=== PATIENT | male | born 1965 | race Caucasian/White ===

== ENCOUNTER 2017-06-09 23:56 | Observation (INO) | payer OTHER, SELFPAY ==
[2017-06-09 23:56] VITALS: BP 159/98; PULSE 71; RESP 17; TEMP 36.6; O2SAT 96; BMI 28.0
--- NOTE | 2017-06-09 23:57 | NURSING ---
CALLED FOR EKG PER RN REQUEST, PULLED OLD EKG'S FOR
[2017-06-10] VITALS (17 sets, daily range): BP systolic 111–147; BP diastolic 58–92; PULSE 56–77; RESP 14–18; TEMP 36.3–37.1; O2SAT 96–98; BMI 27.5
--- NOTE | 2017-06-10 00:06 | EKG12_ITS ---
Test Reason : CP Blood Pressure : / mmHG Vent. Rate : 066 BPM Atrial Rate : 066 BPM P-R Int : 162 ms QRS Dur : 098 ms QT Int : 376 ms P-R-T Axes : 056 030 048 degrees QTc Int : 394 ms Normal sinus rhythm Normal ECG Confirmed by SHAN QUINTANILLA ([id number]), order editor SELMA HUNT ([id number]) on 06/13/2017 9:36:43 AM Referred By: Confirmed By:SHAN QUINTANILLA
--- NOTE | 2017-06-10 00:07 | EKG12_ITS ---
Test Reason : CP Blood Pressure : / mmHG Vent. Rate : 063 BPM Atrial Rate : 063 BPM P-R Int : 180 ms QRS Dur : 096 ms QT Int : 378 ms P-R-T Axes : 051 015 031 degrees QTc Int : 386 ms Normal sinus rhythm Normal ECG Confirmed by SHAN QUINTANILLA ([id number]), clinical editor SELMA HUNT ([id number]) on 06/13/2017 9:35:40 AM Referred By: ALAINA Confirmed By:SHAN QUINTANILLA
--- NOTE | 2017-06-10 00:11 | RAD_ITS ---
STUDY: X-RAY CHEST REASON FOR EXAM: Male, 51 years old. Chest pain TECHNIQUE: Single AP portable view of the chest. COMPARISON: 02/26/2014 FINDINGS: The lungs are clear and expanded. There is no demonstrated pleural abnormality. Borderline cardiomegaly. Normal mediastinum and neena. Normal visualized pulmonary arteries. Normal visualized aortic arch and descending thoracic aorta. Normal visualized thoracic spine. Anterior cervical spinal fusion and instrumentation noted. Normal visualized ribs, clavicles, and shoulders. There is no demonstrated abnormality of the visualized soft tissue structures of the upper abdomen. RAD/Chest 1 View (Portable) IMPRESSION: Borderline cardiomegaly without pulmonary edema or infiltrate. Electronically Signed: Keith Shah MD at 1:16 EST Tel , Service support ,
[2017-06-10] MEDS: Ondansetron 4 MG/2 ML Vial IV (00:15)
[2017-06-10 00:27] LABS: Absolute Lymphocyte Count 2.98 X10^3/ul (0.83-4.51); Absolute Neutrophil Count 2.8 X10^3/uL (2.0-7.7); Basophil# 0.02 X10^3/uL; Basophil% 0.3 % (0-1); Eosinophil# 0.15 X10^3/uL; Eosinophils% 2.2 % (0-5); Hematocrit 44.9 % (40-54); Hemoglobin 15.6 g/dl (13.0-16.5); Lymphocyte # 2.98 X10^3/ul (4.0); Mean Corp Hgb Conc 34.7 g/gl (32-36); Mean Corpuscular Hgb 30.4 pg (27.0-32.0); Mean Corpuscular Volume 87.5 fL (80-94); Mean Platelet Vol. 10.2 fl (6.2-12.0); Monocyte# 0.83 X10^3/uL; Monocyte% 12.3 % (0-10); Neutrophil # 2.78 X10^3/uL (2.7-7.7); Neutrophil % 41.1 % (47-70); Platelet Count 181 K/mm3 (150-450); RBC Distribution Width CV 12.9 % (11.6-14.6); RBC Distribution Width SD 40.4 fl (35.1-43.9); Red Blood Count 5.13 M/mm3 (4.6-6.2); White Blood Count 6.8 K/mm3 (4.4-11.0)
[2017-06-10 00:28] LABS: POSITIVE COUNT NO; POSITIVE DIFFERENTIAL NO; POSITIVE MORPHOLOGY NO
--- NOTE | 2017-06-10 00:32 | ED.DCSUM_ITS ---
- ER Visit Summary Date of Service: 06/10/17 Chief Complaint: Chest pain History of Present Illness: The patient is a 51 M who presents with chest pain that started last evening. Patient states he felt a pressure-like sensation in the left pectoral region. He went to bed early because of pain. He did occasionally radiate to his left jaw and down his left arm. Pain became more severe and woke him up. He did take a full dose aspirin and 3 sublingual nitro at home. He states his pain improved after the third nitro. Patient does have history of hypertension, high cholesterol, prior strokes. He is currently on aspirin and Plavix. Physical Examination: Blood pressure is 159/98, temperature 97.8, heart rate 71 , respiratory rate 17, pulse ox 96% on room air. Patient sitting upright in bed no acute distress. Head neck examination is normal. Heart is regular rate and rhythm. Lung sounds are clear with good air movement. I cannot reproduce any chest wall tenderness. Abdomen is soft nontender. Extremity examination reveals strong distal pulses throughout. Test Results: EKG is sinus at 66 with no sign of acute ischemia. Repeat EKG is unchanged. Portable chest x-ray is unremarkable per my read. CBC and chemistry studies normal. Troponin is less than 0.02. Emergency Department Course and Treatment: Patient already taken aspirin and nitro prior to arrival. He was ordered morphine and Zofran for his mild remaining pain. I did review his most recent stress test from January 2017 which was unremarkable. At this time I recommended hospitalization for cycling of cardiac enzymes and further cardiac evaluation. Treatment Plan: [] Disposition: Admit Impression: Chest pain This note was generated with [employer] dictation software. It may contain incorrect words, spelling, and punctuation that were not noted in review of the chart prior to signing ED Disposition - Plan for ED Patient: Chief Complaint: Chest Pain Referrals: Angus James MD [Primary Care Provider] -
[2017-06-10 00:34] LABS: Anion Gap 8 (5-15); BUN 17 mg/dL (7-18); Chloride 109 mmol/L (98-107); Creatinine, Serum 0.94 mg/dL (0.70-1.30); EST Glomerular Filtration Rate 89 mL/min (>60); Est Glom Filt Rate - Afr Amer 107 mL/min (>60); Estimated Creatinine Clearance 93.84 ml/min; Glucose 94 mg/dL (70-110); Sodium Level 142 mmol/L (136-145)
[2017-06-10] MEDS: 0.9% Normal Saline 1,000 ML 150 ML IV ×2 (00:47→03:00)
--- NOTE | 2017-06-10 02:54 | PCM.HP.STD ---
Problem List (1) CAD (coronary artery disease) Status: Acute (2) Chest pain Status: Acute (3) HTN (hypertension) Status: Chronic History of Present Illness Date of Admission: 06/10/17 Chief Complaint: Chest pain The patient is a 51 year old male w/ h/o HTN, CAD, and CVA admitted for chest pain. Pt had left arm pain last night around 7PM. He later developed pressure chest pain. Pain was moderate and radiated to the jaw. Nothing made it better or worse. Pain was constant. He decided to sleep it off. However, around 11PM, he woke up from the severe left sided chest pain. He took a full dose of aspirin and 3 nitro. After the third nitro, he had some relief of the pain and decided to go to the ED for further workup. Past Medical History Past Medical History (Chronic Problems): Chronic Problems HTN (hypertension) (Chronic) Allergies No Known Allergies Allergy (Verified 02/26/14 14:12) Home Medications: Ambulatory Orders Medication Instructions Recorded Aspirin [Aspirin, Baby] 81 mg PO DAILY@0800 02/26/14 Clopidogrel Bisulfate [Clopidogrel] 75 mg PO DAILY 02/26/14 Cholecalciferol (Vitamin D3) 2,000 unit PO DAILY 02/27/14 [Vitamin D] Atorvastatin Calcium [Lipitor] 10 mg PO QHS 06/10/17 Isosorbide Mononitrate [Imdur] 30 mg PO DAILY 06/10/17 Metoprolol Succinate 25 mg PO DAILY 06/10/17 Multivitamin [Multiple Vitamins] 1 each PO DAILY 06/10/17 Lives: Spouse/ Significant Other Smoking Status: Never smoker - *Family History Maternal History Items: No pertinent history Review of Systems Constitutional: Denies: Chills, Fever, Weight Change HEENT: Denies: Head Aches, Sinus Congestion, Sinus Drainage Cardiovascular: Reports: Chest Pain, Chest Pressure. Denies: Palpitations Respiratory: Denies: Cough, Shortness of breath at rest, Sputum production Gastrointestinal: Denies: Abdominal Pain, Nausea, Vomiting Genitourinary: Denies: Dysuria Musculoskeletal: Denies: Joint Pain, Joint Tenderness Skin: Denies: Rash, Wounds Neurological: Denies: Numbness, Tingling, Focal weakness Psychiatric: Denies: Anxiety, Depression, Homicidal Ideations, Suicidal Ideations Hematologic/ Lymphatic: Denies: Easy Bruising, Easy Bleeding VTE Information - Inpt Only VTE Present on Admission: No VTE Mechan Device Prophylaxis: SCD's VTE Pharm Prophylaxis ordered?: Yes Patient Problems: Active and Suspected Problems CAD (coronary artery disease) (Acute) Chest pain (Acute) - Physical Exam General: Alert, Oriented x3, Cooperative HEENT: Atraumatic, PERRLA, EOMI, Normocephalic Neck: Supple, No JVD, Negative Carotid Bruits Lungs: Clear to auscultation, Normal air movement Cardiovascular: Regular rate, No murmurs Abdomen: Bowel Sounds Present, Soft, Non Tender Extremities: No edema, Capillary Refill Less than 3 Seconds Skin: No rashes, No breakdown Musculoskeletal: No Tenderness to Palpation of Joints or Extremities Neurological: Cranial nerves II-XII grossly intact Psych/Mental Status: Normal Affect, Appropriate Vital Signs Temp Pulse Resp BP Pulse Ox 97.4 F L 58 L 16 118/76 97 06/10/17 02:02 06/10/17 02:02 06/10/17 02:02 06/10/17 02:05 06/10/17 02:02 Oxygen Flow Rate 2 Oxygen Delivery Method Nasal Cannula Weight: 87.09 kg Body Mass Index (BMI) 27.5 Laboratory Tests Past 24 Hrs 06/10/17 06/10/17 00:00 00:00 WBC 6.8 RBC 5.13 Hgb 15.6 Hct 44.9 MCV 87.5 MCH 30.4 MCHC 34.7 RDW 12.9 RDW Differential 40.4 Plt Count 181 MPV 10.2 Immature Gran % (Auto) 0.100 Neut % (Auto) 41.1 L Lymph % (Auto) 44.0 H [place] % (Auto) 12.3 H Eos % (Auto) 2.2 Baso % (Auto) 0.3 Absolute Neuts (auto) 2.8 Absolute Lymphs (auto) 2.98 Total Counted Not Reportable Sodium 142 Potassium 4.0 Chloride 109 H Carbon Dioxide 25.0 Anion Gap 8 BUN 17 Creatinine 0.94 Estim Creat Clear Calc 93.84 Est GFR (MDRD) Af Amer 107 Est GFR (MDRD) Non-Af 89 BUN/Creatinine Ratio 18.0 Glucose 94 Calcium 9.0 Troponin I < 0.02 Assessment/Plan Active and Suspected Problems CAD (coronary artery disease) (Acute) Chest pain (Acute) 51 year old male w/ h/o HTN, CAD, and CVA admitted for chest pain. 1) Chest pain: Heart score 5 Trop negative. EKG and chest xray unremarkable. Chest pain improving. Stress test in Jan 2017 negative. Will get ECHO in AM. Serial trops pending. FLP pending. Will consult cards in AM. 2) CAD: C/w meds. Monitor. 3) HTN: SBP 130s. C/w meds. Monitor. 4) Prophylaxis: Heparin
[2017-06-10 05:01] LABS: Absolute Lymphocyte Count 2.48 X10^3/ul (0.83-4.51); Absolute Neutrophil Count 1.7 X10^3/uL (2.0-7.7); Basophil# 0.02 X10^3/uL; Basophil% 0.4 % (0-1); Eosinophil# 0.14 X10^3/uL; Eosinophils% 2.9 % (0-5); Hematocrit 43.5 % (40-54); Hemoglobin 14.7 g/dl (13.0-16.5); Lymphocyte # 2.48 X10^3/ul (4.0); Lymphocyte % 50.5 % (19-41); Mean Corp Hgb Conc 33.8 g/gl (32-36); Mean Corpuscular Hgb 30.1 pg (27.0-32.0); Monocyte# 0.55 X10^3/uL; Monocyte% 11.2 % (0-10); Neutrophil # 1.72 X10^3/uL (2.7-7.7); Platelet Count 151 K/mm3 (150-450); RBC Distribution Width CV 12.7 % (11.6-14.6); Red Blood Count 4.89 M/mm3 (4.6-6.2); White Blood Count 4.9 K/mm3 (4.4-11.0)
[2017-06-10 05:16] LABS: POSITIVE COUNT NO; POSITIVE DIFFERENTIAL NO; POSITIVE MORPHOLOGY NO
[2017-06-10 05:17] LABS: ALB/GLOB Ratio 1.2 RATIO (0.9-2.4); AST(SGOT) 21 U/L (15-37); Alanine Aminotransfer ALT/SGPT 37 U/L (12-78); Albumin, Serum 3.5 g/dL (3.4-5.0); Alkaline Phosphatase 49 U/L (45-117); Anion Gap 7 (5-15); BUN 14 mg/dL (7-18); BUN/Creat Ratio 16.1 RATIO (10-20); Calcium,Total 8.4 mg/dL (8.5-10.1); Chloride 105 mmol/L (98-107); Cholesterol 127 mg/dL (200); Creatinine, Serum 0.87 mg/dL (0.70-1.30); EST Glomerular Filtration Rate 97 mL/min (>60); Est Glom Filt Rate - Afr Amer 118 mL/min (>60); Estimated Creatinine Clearance 101.39 ml/min; Globulin 2.8 g/dL (2.2-4.2); Glucose 86 mg/dL (70-110); High Density Lipoprotein 45 mg/dL; Magnesium 1.9 mg/dL (1.6-2.6); Potassium 4.1 mmol/L (3.5-5.1); Protein, Total 6.3 g/dL (6.4-8.2); Sodium Level 140 mmol/L (136-145); Thyroid Stim Hormone (TSH) 3.18 uIU/mL (0.358-3.74); Triglycerides 50 mg/dL; Very Low Density Lipoprotein 10 mg/dL (5-40)
--- NOTE | 2017-06-10 05:55 | ECHOD_ITS ---
Reason For Study: Chest Pain Procedure This was a 2D Doppler, Color Flow transthoracic echocardiogram. Exam performed portable in patient room. Left Ventricle Normal size and thickness. The estimated ejection fraction is 65 %. Normal diastology for age. No regional wall motion abnormalities noted. Right Ventricle Normal size and thickness. Normal systolic function. Atria Normal left atrium. Normal right atrium. Normal atrial septum. Mitral Valve The mitral valve is structurally normal. No prolapse or stenosis seen. Tricuspid Valve Normal tricuspid valve. Trivial tricuspid valve insufficiency. Right ventricular systolic pressure estimated to be 26 mmHg. Aortic Valve Trisinus/trileaflet aortic valve. Normal aortic valve. Pulmonic Valve Normal pulmonic valve. Great Vessels Normal aortic root. Normal arch. Normal inferior vena cava. Inferior vena cava collapse with sniff. Pericardium/Pleural No pericardial effusion. MMode/2D Measurements & Calculations LVIDd: 4.9 cm IVSd: 1.0 cm Ao root diam: 3.0 cm LVIDs: 3.1 cm LVPWd: 0.97 cm LA dimension: 3.5 cm RVDd: 3.6 cm FS: 36.1 % LAV(MOD-bp): 41.0 ml LVAd ap4: 28.6 cm2 SV(MOD-sp4): 46.7 ml LAV(MOD-bp) Indexed: 20.0 ml/m2 EDV(MOD-sp4): 88.6 ml LAV(MOD-sp2): 42.4 ml EDV(sp4-el): 93.6 ml LAV(MOD-sp4): 42.4 ml LVAs ap4: 17.4 cm2 ESV(MOD-sp4): 41.9 ml ESV(sp4-el): 44.4 ml EF(MOD-sp4): 52.7 % EF(sp4-el): 52.6 % SV(sp4-el): 49.2 ml LA A4 area: 16.5 cm2 RA A4 area: 19.0 cm2 Time Measurements MV dec time: 0.21 sec Doppler Measurements & Calculations MV E max tyler: 78.9 cm/sec Lat Peak E' Tyler: 12.7 cm/sec Med Peak E' [place]: 9.4 cm/sec MV A max tyler: 65.7 cm/sec E/E' lat: 6.2 E/E' med: 8.4 MV E/A: 1.2 MV V2 max: 88.3 cm/sec MV P1/2t max tyler: 88.3 cm/sec Ao V2 max: 128.1 cm/sec MV max P.1 mmHg MV P1/2t: 54.8 msec Ao max P.6 mmHg MV V2 mean: 48.1 cm/sec MV dec slope: 471.8 cm/sec2 Ao V2 mean: 81.6 cm/sec MV mean P.1 mmHg MVA(P1/2t): 4.0 cm2 Ao mean P.0 mmHg MV V2 VTI: 25.4 cm Ao V2 VTI: 26.6 cm LV V1 max: 117.0 cm/sec PA V2 max: 109.8 cm/sec TR max tyler: 225.9 cm/sec LV V1 max P.5 mmHg TR max P.4 mmHg LV V1 mean P.8 mmHg LV V1 mean: 78.8 cm/sec LV V1 VTI: 25.5 cm Interpretation Summary The estimated ejection fraction is 65 %. Normal diastology for age. Trivial tricuspid valve insufficiency. Right ventricular systolic pressure estimated to be 26 mmHg. Compared to echo report dated 12/11/2009, no appreciable changes noted. Ordering Physician: Hayden Buchanan Referring Physician: Angus James Performed By: Shayan Olivares RCS
--- NOTE | 2017-06-10 05:55 | EKG12_ITS ---
Test Reason : AM EKG Blood Pressure : / mmHG Vent. Rate : 060 BPM Atrial Rate : 060 BPM P-R Int : 182 ms QRS Dur : 096 ms QT Int : 398 ms P-R-T Axes : 039 029 039 degrees QTc Int : 398 ms Normal sinus rhythm Normal ECG When compared with ECG of 09-JUN-2017 23:54, MANUAL COMPARISON REQUIRED, DATA IS UNCONFIRMED Confirmed by SHAN QUINTANILLA ([id number]), video tape editor SELMA HUNT ([id number]) on 06/15/2017 11:57:42 AM Referred By: NATALIIA Confirmed By:SHAN QUINTANILLA
[2017-06-10] MEDS: Aspirin 81 MG TAB.CHEW PO (09:11)
[2017-06-10] MEDS: Isosorbide Mononitrate 30 MG Tablet PO (09:12)
[2017-06-10] MEDS: Metoprolol(XL)Succ 25 MG Tablet PO (09:12)
[2017-06-10] MEDS: Clopidogrel Bisulfate 75 MG Tablet PO (09:12)
[2017-06-10] MEDS: Multivitamins,Therapeutic Tablet 1 TABLET PO (09:12)
--- NOTE | 2017-06-10 09:57 | PCM.CONS.C ---
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 Carvalho in 2013. At that time he was found to have questionable nonobstructive coronary disease of his LAD, diagonal #2 and #3, as well as his left circumflex. Patient was transferred to [facility] on 02/28/14 underwent FFR evaluation of his left circumflex which is found to be 0.94, FFR of D2 was 0.87, and FFR of D3 was 0.87. No stenting was performed and the patient was medically managed with beta-mai and Imdur therapy. Patient returned in January 2017 with recurrent substernal chest pressure similar to his chest pain in 2013. At that time he was ruled out for myocardial infarction underwent an exercise/MPI which was negative for ischemia at an excellent workload. The patient denies any chest pain symptoms. Apparently, the patient has been cutting down on his beta-mai and cutting his Imdur in half over the last several weeks. Apparently he did not notify anyone of this, and has been exercising fairly aggressively on a elliptical market development trainer. Patient has noted that his exercise capacity and fatigue factor have increased over the last several weeks, possibly explaining why he tried to reduce his beta-mai therapy. He notes that he was no longer able to exercise in the evening due to fatigue. Last evening, at around the time he went to bed he developed severe 9 out of 10 substernal chest pressure, identical to his previous anginal symptoms noted in February 2014 as well as in March 2017. The pain radiated up into his jaw, and slightly down into his left shoulder, with associated nausea but no vomiting. Patient took 3 sublingual nitroglycerin which reduced his pain down to around a 2 out of 10. At the encouragement of his he was brought to [facility] ER where an EKG was performed which demonstrated normal sinus rhythm, no acute changes. Patient ruled out for myocardial infarction, The patient underwent an echocardiogram this morning which demonstrated normal LV size and function, EF of 65%, trivial tricuspid regurgitation, and normal RVSP. [] Past Medical History Allergies/Adverse Reactions: Allergies No Known Allergies Allergy (Verified 02/26/14 14:12) Home Medications: Ambulatory Orders Medication Instructions Recorded Aspirin [Aspirin, Baby] 81 mg PO DAILY@0800 02/26/14 Clopidogrel Bisulfate [Clopidogrel] 75 mg PO DAILY 02/26/14 Cholecalciferol (Vitamin D3) 2,000 unit PO DAILY 02/27/14 [Vitamin D] Atorvastatin Calcium [Lipitor] 10 mg PO QHS 06/10/17 Isosorbide Mononitrate [Imdur] 30 mg PO DAILY 06/10/17 Metoprolol Succinate 25 mg PO DAILY 06/10/17 Multivitamin [Multiple Vitamins] 1 each PO DAILY 06/10/17 Past Medical History (Chronic Problems): Chronic Problems HTN (hypertension) (Chronic) - *Family History Maternal History Items: No pertinent history Lives: Spouse/ Significant Other Smoking Status: Never smoker Review of Systems - Review of Systems General: Denies: Fever, Night Sweats, Fatigue Cardiovascular: Denies: Chest Discomfort, Shortness of Breath, Orthopnea, PND, Peripheral Edema, Palpitations, Lightheadedness, Dizziness, Near Syncope, Syncope Respiratory: Denies: Cough, Sputum Production, Hemoptysis Gastrointestinal: Denies: Hematemesis, Hematochezia, Melena Genitourinary: Denies: Dysuria, Hematuria Skin: Denies: Rash Subjectve: Count to distress. at the bedside. Objective: Vital Signs Temp Pulse Resp BP Pulse Ox 97.6 F L 63 18 146/83 H 98 06/10/17 08:00 06/10/17 09:12 06/10/17 08:00 06/10/17 08:00 06/10/17 08:00 Oxygen Flow Rate 2 Oxygen Delivery Method Room Air Weight: 192 lb Body Mass Index (BMI) 27.5 Intake and Output for Last 24 Hours 06/08/17 06/09/17 06/10/17 23:59 23:59 23:59 Output Total 0 / 0 Balance 0 / 0 General: Awake, Alert, Oriented x 3 HEENT: PERRL, EOMI, Sclera Non Icteric Neck: Supple, Good ROM, No Lymph Node Enlargement Lungs: Clear to auscultation Cardiovascular: Regular Rhythm, Normal S1, Normal S2, No Murmurs, No Rubs, No Gallops Vascular: No Carotid Bruits, Normal Femoral Pulses, Normal Radial Pulses, Normal Dorsalis Pedal Pulse, Normal Posterior Tibial Pulses Abdomen: Bowel Sounds Present, Soft, Non Tender, No HSM, No Organomegaly Extremities: No Cyanosis, No Clubbing, No edema Neurological: No Focal Motor or Sensory Deficit 06/10/17 04:31: WBC 4.9, RBC 4.89, Hgb 14.7, Hct 43.5, MCV 89.0, MCH 30.1, MCHC 33.8, RDW 12.7, RDW Differential 41.0, Plt Count 151, MPV 10.0, Immature Gran % (Auto) 0.000, Neut % (Auto) 35.0 L, Lymph % (Auto) 50.5 H, [place] % (Auto) 11.2 H, Eos % (Auto) 2.9, Baso % (Auto) 0.4, Absolute Neuts (auto) 1.7 L, Total Counted Not Reportable 06/10/17 04:31: Sodium 140, Potassium 4.1, Chloride 105, Carbon Dioxide 28.0, Anion Gap 7, BUN 14, Creatinine 0.87, Est GFR (MDRD) Af Amer 118, Est GFR (MDRD) Non-Af 97, BUN/Creatinine Ratio 16.1, Glucose 86, Calcium 8.4 L, Magnesium 1.9, Total Bilirubin 0.40, Triglycerides 50, Cholesterol 127, LDL Cholesterol 72, VLDL Cholesterol 10, HDL Cholesterol 45 06/10/17 04:31: Troponin I < 0.02 06/10/17 08:05: Troponin I < 0.02 Rhythm: EKG: As above ECHO: As above Stress Test: Cardiac Cath: PCI: CT Surgery: Holter monitor: EPS: PPM: CXR: Chest CT Scan: Assessment/Plan 1. Unstable angina: The patient has known coronary artery disease involving his left circumflex, LAD, diagonal #2 and diagonal #3 vessels. I reviewed his catheterization film from February 2014. Given the patient's constellation of symptoms, risk factors, several occurrences of unstable angina in the last several months, and the severity of the patient's chest pain last evening, to say nothing of the possible progression of disease since 2013, I highly recommended the patient stay in the hospital undergo a left her catheterization by either myself or Dr. Carvalho on Monday. Patient has had no further chest pain overnight, and his troponins are all negative, so therefore do not believe he requires urgent or emergent catheterization at this time. I had a long and thorough discussion with the patient and his regarding the possible reasons for his chest pain, with specific attention to the location of his most severe coronary disease of his left circumflex which may not be appreciated by surface EKG or echocardiogram, or stress testing. In addition given the patient's heavy exercise, he may have a component of ischemic preconditioning as well. I have advised him to increase his beta-mai back to his previous dosage, as well as taking his full dose Imdur 30 mg p.o. daily. Patient is already on baby aspirin and Plavix for primary prevention. I discussed the patient's condition with Dr. Freddy Carvalho his primary motor power connector, and he agrees that a catheterization should be done sooner rather than later. Patient is expressed concern about missing work, and I explained to him that we would do our best to get him back to work as soon as possible but he may have to have some time off regardless of when his catheterization takes place. I believe a reasonable compromise would be for the patient to be discharged home with a scheduled time for him to undergo diagnostic coronary angiogram either early this week or perhaps even this Monday as an outpatient, with the caveat if his symptoms return that he should return to the hospital immediately and then we will proceed with his catheterization sooner than later. 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 At this point the patient will discuss this with Dr. Carvalho, his , and make a decision regarding the timing of his catheterization going forward. 2. Hyperlipidemia: Patient's LDL is 72 and HDL is 45. Continue Lipitor therapy. 3. Thank you very much for the opportunity to put dissipate in the cardiac care of your patient. Consultation time took place between 9 AM and 10:20 AM.
--- NOTE | 2017-06-10 10:08 | CON.PCM_ITS ---
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 Carvalho in 2013. At that time he was found to have questionable nonobstructive coronary disease of his LAD, diagonal #2 and #3, as well as his left circumflex. Patient was transferred to [facility] on 02/28/14 underwent FFR evaluation of his left circumflex which is found to be 0.94, FFR of D2 was 0.87, and FFR of D3 was 0.87. No stenting was performed and the patient was medically managed with beta -mai and Imdur therapy. Patient returned in January 2017 with recurrent substernal chest pressure similar to his chest pain in 2013. At that time he was ruled out for myocardial infarction underwent an exercise/MPI which was negative for ischemia at an excellent workload. The patient denies any chest pain symptoms. Apparently, the patient has been cutting down on his beta-mai and cutting his Imdur in half over the last several weeks. Apparently he did not notify anyone of this, and has been exercising fairly aggressively on a elliptical labor trainer. Patient has noted that his exercise capacity and fatigue factor have increased over the last several weeks, possibly explaining why he tried to reduce his beta-mai therapy. He notes that he was no longer able to exercise in the evening due to fatigue. Last evening, at around the time he went to bed he developed severe 9 out of 10 substernal chest pressure, identical to his previous anginal symptoms noted in February 2014 as well as in March 2017. The pain radiated up into his jaw, and slightly down into his left shoulder, with associated nausea but no vomiting. Patient took 3 sublingual nitroglycerin which reduced his pain down to around a 2 out of 10. At the encouragement of his he was brought to [facility] ER where an EKG was performed which demonstrated normal sinus rhythm, no acute changes. Patient ruled out for myocardial infarction, The patient underwent an echocardiogram this morning which demonstrated normal LV size and function, EF of 65%, trivial tricuspid regurgitation, and normal RVSP. [] Past Medical History Allergies/Adverse Reactions: Allergies No Known Allergies Allergy (Verified 02/26/14 14:12) Home Medications: Ambulatory Orders Medication Instructions Recorded Aspirin [Aspirin, Baby] 81 mg PO DAILY@0800 02/26/14 Clopidogrel Bisulfate [Clopidogrel] 75 mg PO DAILY 02/26/14 Cholecalciferol (Vitamin D3) 2,000 unit PO DAILY 02/27/14 [Vitamin D] Atorvastatin Calcium [Lipitor] 10 mg PO QHS 06/10/17 Isosorbide Mononitrate [Imdur] 30 mg PO DAILY 06/10/17 Metoprolol Succinate 25 mg PO DAILY 06/10/17 Multivitamin [Multiple Vitamins] 1 each PO DAILY 06/10/17 Past Medical History (Chronic Problems): Chronic Problems HTN (hypertension) (Chronic) - *Family History Maternal History Items: No pertinent history Lives: Spouse/ Significant Other Smoking Status: Never smoker Review of Systems - Review of Systems General: Denies: Fever, Night Sweats, Fatigue Cardiovascular: Denies: Chest Discomfort, Shortness of Breath, Orthopnea, PND, Peripheral Edema, Palpitations, Lightheadedness, Dizziness, Near Syncope, Syncope Respiratory: Denies: Cough, Sputum Production, Hemoptysis Gastrointestinal: Denies: Hematemesis, Hematochezia, Melena Genitourinary: Denies: Dysuria, Hematuria Skin: Denies: Rash Subjectve: Count to distress. at the bedside. Objective: Vital Signs Temp Pulse Resp BP Pulse Ox 97.6 F L 63 18 146/83 H 98 06/10/17 08:00 06/10/17 09:12 06/10/17 08:00 06/10/17 08:00 06/10/17 08:00 Oxygen Flow Rate 2 Oxygen Delivery Method Room Air Weight: 192 lb Body Mass Index (BMI) 27.5 Intake and Output for Last 24 Hours 06/08/17 06/09/17 06/10/17 23:59 23:59 23:59 Output Total 0 / 0 Balance 0 / 0 General: Awake, Alert, Oriented x 3 HEENT: PERRL, EOMI, Sclera Non Icteric Neck: Supple, Good ROM, No Lymph Node Enlargement Lungs: Clear to auscultation Cardiovascular: Regular Rhythm, Normal S1, Normal S2, No Murmurs, No Rubs, No Gallops Vascular: No Carotid Bruits, Normal Femoral Pulses, Normal Radial Pulses, Normal Dorsalis Pedal Pulse, Normal Posterior Tibial Pulses Abdomen: Bowel Sounds Present, Soft, Non Tender, No HSM, No Organomegaly Extremities: No Cyanosis, No Clubbing, No edema Neurological: No Focal Motor or Sensory Deficit 06/10/17 04:31: WBC 4.9, RBC 4.89, Hgb 14.7, Hct 43.5, MCV 89.0, MCH 30.1, MCHC 33.8, RDW 12.7, RDW Differential 41.0, Plt Count 151, MPV 10.0, Immature Gran % (Auto) 0.000, Neut % (Auto) 35.0 L, Lymph % (Auto) 50.5 H, [place] % (Auto) 11.2 H , Eos % (Auto) 2.9, Baso % (Auto) 0.4, Absolute Neuts (auto) 1.7 L, Total Counted Not Reportable 06/10/17 04:31: Sodium 140, Potassium 4.1, Chloride 105, Carbon Dioxide 28.0, Anion Gap 7, BUN 14, Creatinine 0.87, Est GFR (MDRD) Af Amer 118, Est GFR (MDRD ) Non-Af 97, BUN/Creatinine Ratio 16.1, Glucose 86, Calcium 8.4 L, Magnesium 1.9 , Total Bilirubin 0.40, Triglycerides 50, Cholesterol 127, LDL Cholesterol 72, VLDL Cholesterol 10, HDL Cholesterol 45 06/10/17 04:31: Troponin I < 0.02 06/10/17 08:05: Troponin I < 0.02 Rhythm: EKG: As above ECHO: As above Stress Test: Cardiac Cath: PCI: CT Surgery: Holter monitor: EPS: PPM: CXR: Chest CT Scan: Assessment/Plan 1. Unstable angina: The patient has known coronary artery disease involving his left circumflex, LAD, diagonal #2 and diagonal #3 vessels. I reviewed his catheterization film from February 2014. Given the patient's constellation of symptoms, risk factors, several occurrences of unstable angina in the last several months, and the severity of the patient's chest pain last evening, to say nothing of the possible progression of disease since 2013, I highly recommended the patient stay in the hospital undergo a left her catheterization by either myself or Dr. Carvalho on Monday. Patient has had no further chest pain overnight, and his troponins are all negative, so therefore do not believe he requires urgent or emergent catheterization at this time. I had a long and thorough discussion with the patient and his regarding the possible reasons for his chest pain, with specific attention to the location of his most severe coronary disease of his left circumflex which may not be appreciated by surface EKG or echocardiogram, or stress testing. In addition given the patient's heavy exercise, he may have a component of ischemic preconditioning as well. I have advised him to increase his beta-mai back to his previous dosage, as well as taking his full dose Imdur 30 mg p.o. daily. Patient is already on baby aspirin and Plavix for primary prevention. I discussed the patient's condition with Dr. Freddy Carvalho his primary steam setter, and he agrees that a catheterization should be done sooner rather than later. Patient is expressed concern about missing work, and I explained to him that we would do our best to get him back to work as soon as possible but he may have to have some time off regardless of when his catheterization takes place. I believe a reasonable compromise would be for the patient to be discharged home with a scheduled time for him to undergo diagnostic coronary angiogram either early this week or perhaps even this Monday as an outpatient, with the caveat if his symptoms return that he should return to the hospital immediately and then we will proceed with his catheterization sooner than later. 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 At this point the patient will discuss this with Dr. Carvalho, his , and make a decision regarding the timing of his catheterization going forward. 2. Hyperlipidemia: Patient's LDL is 72 and HDL is 45. Continue Lipitor therapy. 3. Thank you very much for the opportunity to put dissipate in the cardiac care of your patient. Consultation time took place between 9 AM and 10:20 AM.
--- NOTE | 2017-06-10 15:33 | CASEMGMT ---
According to [facility] website, the following are in-network tertiary facilities: [facility], [place], [facility], [facility], [place], [facility], [facility], and . Elida PARR CM
[2017-06-10] MEDS: 0.9% NaCl Peripheral Flush Adult/Peds IV (20:49)
[2017-06-10] MEDS: Atorvastatin Calcium 10 MG Tablet PO (22:28)
[2017-06-11] VITALS (13 sets, daily range): BP systolic 109–146; BP diastolic 69–76; PULSE 50–90; RESP 16; TEMP 36.7–37.2; O2SAT 95–97
[2017-06-11] MEDS: Multivitamins,Therapeutic Tablet 1 TABLET PO (09:36)
[2017-06-11] MEDS: Metoprolol(XL)Succ 25 MG Tablet PO (09:36)
[2017-06-11] MEDS: Isosorbide Mononitrate 30 MG Tablet PO (09:36)
[2017-06-11] MEDS: Aspirin 81 MG TAB.CHEW PO (09:36)
[2017-06-11] MEDS: Clopidogrel Bisulfate 75 MG Tablet PO (09:36)
--- NOTE | 2017-06-11 10:14 | PCM.PN.CARD ---
Subjectve: Patient doing very well, no 24 hour events. Telemetry showed normal sinus rhythm. No further chest pain with increased dose of beta-mai and Imdur. Objective: Vital Signs Temp Pulse Resp BP Pulse Ox 98.6 F 60 16 130/69 H 97 06/11/17 09:31 06/11/17 09:36 06/11/17 09:31 06/11/17 09:36 06/11/17 09:31 Oxygen Flow Rate 2 Oxygen Delivery Method Room Air Weight: 192 lb Body Mass Index (BMI) 27.5 Intake and Output for Last 24 Hours 06/09/17 06/10/17 06/11/17 23:59 23:59 23:59 Intake Total 840 / 840 Output Total 0 / 0 Balance 840 / 840 General: Awake, Alert, Oriented x 3 HEENT: PERRL, EOMI, Sclera Non Icteric Neck: Supple, Good ROM, No Lymph Node Enlargement Lungs: Clear to auscultation Cardiovascular: Regular Rhythm, Normal S1, Normal S2, No Murmurs, No Rubs, No Gallops Vascular: No Carotid Bruits, Normal Femoral Pulses, Normal Radial Pulses, Normal Dorsalis Pedal Pulse, Normal Posterior Tibial Pulses Abdomen: Bowel Sounds Present, Soft, Non Tender, No HSM, No Organomegaly Extremities: No Cyanosis, No Clubbing, No edema Neurological: No Focal Motor or Sensory Deficit 06/10/17 13:55: Troponin I < 0.02 Rhythm: EKG: ECHO: Stress Test: Cardiac Cath: PCI: CT Surgery: Holter monitor: EPS: PPM: CXR: Chest CT Scan: Assessment/Plan 1. Unstable angina: The patient has known coronary artery disease involving his left circumflex, LAD, diagonal #2 and diagonal #3 vessels. I reviewed his catheterization film from February 2014. Given the patient's constellation of symptoms, risk factors, several occurrences of unstable angina in the last several months, and the severity of the patient's chest pain last evening, to say nothing of the possible progression of disease since 2013, I highly recommended the patient stay in the hospital undergo a left her catheterization by either myself or Dr. Carvalho on Monday. Patient has had no further chest pain overnight, and his troponins are all negative, so therefore do not believe he requires urgent or emergent catheterization at this time. I had a long and thorough discussion with the patient and his regarding the possible reasons for his chest pain, with specific attention to the location of his most severe coronary disease of his left circumflex which may not be appreciated by surface EKG or echocardiogram, or stress testing. In addition given the patient's heavy exercise, he may have a component of ischemic preconditioning as well. I have advised him to increase his beta-mai back to his previous dosage, as well as taking his full dose Imdur 30 mg p.o. daily. Patient is already on baby aspirin and Plavix for primary prevention. I discussed the patient's condition with Dr. Freddy Carvalho his primary skin washer, and he agrees that a catheterization should be done sooner rather than later. Patient is expressed concern about missing work, and I explained to him that we would do our best to get him back to work as soon as possible but he may have to have some time off regardless of when his catheterization takes place. 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 After much discussion yesterday with the patient, his , he will continue baby aspirin,The patient is agreed to proceed with left heart catheterization tomorrow morning, 06/12/16. He will continue baby aspirin, Plavix, beta-mai, Imdur. 2. Hyperlipidemia: Patient's LDL is 72 and HDL is 45. Continue Lipitor therapy. 3. Thank you very much for the opportunity to put dissipate in the cardiac care of your patient. Catheterization to follow with Dr. Carvalho tomorrow morning. Code Visit Inpatient E&M: 34977 Subs Hosp L2
--- NOTE | 2017-06-11 10:17 | PN.CARD_ITS ---
Subjectve: Patient doing very well, no 24 hour events. Telemetry showed normal sinus rhythm. No further chest pain with increased dose of beta-mai and Imdur. Objective: Vital Signs Temp Pulse Resp BP Pulse Ox 98.6 F 60 16 130/69 H 97 06/11/17 09:31 06/11/17 09:36 06/11/17 09:31 06/11/17 09:36 06/11/17 09:31 Oxygen Flow Rate 2 Oxygen Delivery Method Room Air Weight: 192 lb Body Mass Index (BMI) 27.5 Intake and Output for Last 24 Hours 06/09/17 06/10/17 06/11/17 23:59 23:59 23:59 Intake Total 840 / 840 Output Total 0 / 0 Balance 840 / 840 General: Awake, Alert, Oriented x 3 HEENT: PERRL, EOMI, Sclera Non Icteric Neck: Supple, Good ROM, No Lymph Node Enlargement Lungs: Clear to auscultation Cardiovascular: Regular Rhythm, Normal S1, Normal S2, No Murmurs, No Rubs, No Gallops Vascular: No Carotid Bruits, Normal Femoral Pulses, Normal Radial Pulses, Normal Dorsalis Pedal Pulse, Normal Posterior Tibial Pulses Abdomen: Bowel Sounds Present, Soft, Non Tender, No HSM, No Organomegaly Extremities: No Cyanosis, No Clubbing, No edema Neurological: No Focal Motor or Sensory Deficit 06/10/17 13:55: Troponin I < 0.02 Rhythm: EKG: ECHO: Stress Test: Cardiac Cath: PCI: CT Surgery: Holter monitor: EPS: PPM: CXR: Chest CT Scan: Assessment/Plan 1. Unstable angina: The patient has known coronary artery disease involving his left circumflex, LAD, diagonal #2 and diagonal #3 vessels. I reviewed his catheterization film from February 2014. Given the patient's constellation of symptoms, risk factors, several occurrences of unstable angina in the last several months, and the severity of the patient's chest pain last evening, to say nothing of the possible progression of disease since 2013, I highly recommended the patient stay in the hospital undergo a left her catheterization by either myself or Dr. Carvalho on Monday. Patient has had no further chest pain overnight, and his troponins are all negative, so therefore do not believe he requires urgent or emergent catheterization at this time. I had a long and thorough discussion with the patient and his regarding the possible reasons for his chest pain, with specific attention to the location of his most severe coronary disease of his left circumflex which may not be appreciated by surface EKG or echocardiogram, or stress testing. In addition given the patient's heavy exercise, he may have a component of ischemic preconditioning as well. I have advised him to increase his beta-mai back to his previous dosage, as well as taking his full dose Imdur 30 mg p.o. daily. Patient is already on baby aspirin and Plavix for primary prevention. I discussed the patient's condition with Dr. Freddy Carvalho his primary cna hha, and he agrees that a catheterization should be done sooner rather than later. Patient is expressed concern about missing work, and I explained to him that we would do our best to get him back to work as soon as possible but he may have to have some time off regardless of when his catheterization takes place. 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 After much discussion yesterday with the patient, his , he will continue baby aspirin,The patient is agreed to proceed with left heart catheterization tomorrow morning, 06/12/16. He will continue baby aspirin, Plavix, beta-mai , Imdur. 2. Hyperlipidemia: Patient's LDL is 72 and HDL is 45. Continue Lipitor therapy. 3. Thank you very much for the opportunity to put dissipate in the cardiac care of your patient. Catheterization to follow with Dr. Carvalho tomorrow morning. Code Visit Inpatient E&M: 98338 Subs Hosp L2
--- NOTE | 2017-06-11 18:28 | PCM.PROGNOTE ---
Patient Problems: Active and Suspected Problems CAD (coronary artery disease) (Acute) Chest pain (Acute) Subjective: Patient was seen and examined today, he has no complaints of any shortness of breath or chest pain. Patient will undergo a cardiac catheterization tomorrow. - Physical Exam General: Alert, Oriented x3, Cooperative, No apparent distress, Well developed, Well nourished HEENT: Atraumatic, PERRLA, EOMI, Normocephalic Oral: Moist Mucosa Neck: Supple, No JVD, No Nuchal Rigidity, Trachea Midline, Thyroid Normal Size and Texture Lungs: Clear to auscultation, Normal air movement, No rhonchi, No wheeze, No rales Cardiovascular: Regular rate, Regular Rhythm, Normal S1, Normal S2, No murmurs, No Ectopic Activity, PMI Normal, No rub noted, No Gallop Abdomen: Bowel Sounds Present, Soft, Non Tender, Non-Distended, No hernias noted Extremities: No clubbing, No cyanosis, No edema, Capillary Refill Less than 3 Seconds Skin: No rashes, No breakdown Neurological: Cranial nerves II-XII grossly intact, Neuro grossly intact, Muscle tone normal, Sensory exam intact to light touch and pain, Coordination normal Psych/Mental Status: Normal Affect, Appropriate, Alert and oriented to time, place, person, mood and affect Vital Signs Temp Pulse Resp BP Pulse Ox 98.0 F 57 L 16 120/76 95 06/11/17 15:30 06/11/17 15:30 06/11/17 15:30 06/11/17 15:30 06/11/17 15:30 Oxygen Flow Rate 2 Oxygen Delivery Method Room Air Weight: 87.09 kg Body Mass Index (BMI) 27.5 Intake and Output for Last 24 Hours 06/09/17 06/10/17 06/11/17 23:59 23:59 23:59 Intake Total 840 / 840 1710 / 1710 Output Total 0 / 0 Balance 840 / 840 1710 / 1710 Assessment/Plan Active and Suspected Problems CAD (coronary artery disease) (Acute) Chest pain (Acute) #1 precordial chest pain-suspicious for angina, patient will undergo a cardiac catheterization tomorrow #2 coronary artery disease by history #3 hyperlipidemia #4 hypertension Code Visit OBSV E&M: 52110 Subsequent observation care L2
[2017-06-11] MEDS: Atorvastatin Calcium 10 MG Tablet PO (21:07)
[2017-06-11] MEDS: 0.9% NaCl Peripheral Flush Adult/Peds IV (21:08)
[2017-06-11] MEDS: 0.9% Normal Saline 1,000 ML 15 ML IV (23:45)
--- NOTE | 2017-06-11 23:48 | NURSING ---
This RN checked heart cath prep site since done independently by patient.
[2017-06-12] VITALS (16 sets, daily range): BP systolic 96–142; BP diastolic 43–71; PULSE 52–73; RESP 16; TEMP 36.4–37.1; O2SAT 94–100
[2017-06-12 04:30] LABS: Color, Urine Yellow (Yellow); Glucose, Dipstick Normal (Normal); Ketone-Dipstick Negative (Negative); Leukocyte Esterase-Dipstick Negative /ul (Negative); Nitrite-Dipstick Negative (Negative); Occult Blood-Urine Negative /ul (Negative); Protein-Dipstick Negative (Negative); Urine Bilirubin Dipstick Negative (Negative); Urine Clarity Clear (Clear); Urine Urobilinogen Normal (Normal)
--- NOTE | 2017-06-12 05:55 | EKG12_ITS ---
Test Reason : MORNING EKG Blood Pressure : / mmHG Vent. Rate : 055 BPM Atrial Rate : 055 BPM P-R Int : 166 ms QRS Dur : 100 ms QT Int : 406 ms P-R-T Axes : 042 022 025 degrees QTc Int : 388 ms Sinus bradycardia Otherwise normal ECG When compared with ECG of 10-JUN-2017 05:31, MANUAL COMPARISON REQUIRED, DATA IS UNCONFIRMED Confirmed by SHAN QUINTANILLA ([id number]), newspaper editor SELMA HUNT ([id number]) on 06/15/2017 12:01:02 PM Referred By: Confirmed By:SHAN QUINTANILLA
[2017-06-12] MEDS: Aspirin 81 MG TAB.CHEW PO (05:59)
[2017-06-12] MEDS: Clopidogrel Bisulfate 75 MG Tablet PO (05:59)
[2017-06-12 06:12] LABS: International Normalized Ratio 1.1; Partial Thromboplast Time 26.1 Seconds (24.1-36.2); Prothrombin Time (Protime)PT. 13.7 SECONDS (11.7-14.9)
[2017-06-12 06:22] LABS: Absolute Lymphocyte Count 2.02 X10^3/ul (0.83-4.51); Absolute Neutrophil Count 2.3 X10^3/uL (2.0-7.7); Basophil# 0.01 X10^3/uL; Basophil% 0.2 % (0-1); Eosinophil# 0.08 X10^3/uL; Eosinophils% 1.6 % (0-5); Hematocrit 43.2 % (40-54); Hemoglobin 15.1 g/dl (13.0-16.5); Lymphocyte # 2.02 X10^3/ul (4.0); Lymphocyte % 39.5 % (19-41); Mean Corpuscular Hgb 30.6 pg (27.0-32.0); Mean Corpuscular Volume 87.6 fL (80-94); Mean Platelet Vol. 10.2 fl (6.2-12.0); Monocyte# 0.66 X10^3/uL; Monocyte% 12.9 % (0-10); Neutrophil # 2.33 X10^3/uL (2.7-7.7); Neutrophil % 45.6 % (47-70); Platelet Count 157 K/mm3 (150-450); RBC Distribution Width CV 12.4 % (11.6-14.6); Red Blood Count 4.93 M/mm3 (4.6-6.2); White Blood Count 5.1 K/mm3 (4.4-11.0)
[2017-06-12 06:29] LABS: POSITIVE COUNT NO; POSITIVE DIFFERENTIAL NO; POSITIVE MORPHOLOGY NO
[2017-06-12 06:41] LABS: Anion Gap 7 (5-15); BUN 17 mg/dL (7-18); BUN/Creat Ratio 19.7 RATIO (10-20); Calcium,Total 8.5 mg/dL (8.5-10.1); Chloride 106 mmol/L (98-107); Creatinine, Serum 0.86 mg/dL (0.70-1.30); EST Glomerular Filtration Rate 99 mL/min (>60); Est Glom Filt Rate - Afr Amer 119 mL/min (>60); Estimated Creatinine Clearance 102.57 ml/min; Glucose 88 mg/dL (70-110); Potassium 3.9 mmol/L (3.5-5.1); Sodium Level 140 mmol/L (136-145)
[2017-06-12] MEDS: Metoprolol(XL)Succ 25 MG Tablet PO (06:43)
[2017-06-12] MEDS: Isosorbide Mononitrate 30 MG Tablet PO (06:45)
[2017-06-12] MEDS: DiphenhydrAMINE 25 MG Capsule 50 MG PO (06:45)
--- NOTE | 2017-06-12 08:06 | PN.CARD_ITS ---
Subjectve: The patient seen and evaluated and underwent cardiac catheterization today Objective: Vital Signs Temp Pulse Resp BP Pulse Ox 98.7 F 59 L 16 127/71 H 100 06/12/17 03:05 06/12/17 06:43 06/12/17 03:05 06/12/17 06:43 06/12/17 03:05 Oxygen Flow Rate 2 Oxygen Delivery Method Room Air Weight: 192 lb Body Mass Index (BMI) 27.5 Intake and Output for Last 24 Hours 06/10/17 06/11/17 06/12/17 23:59 23:59 23:59 Intake Total 840 / 840 1845 / 1845 Output Total 0 / 0 Balance 840 / 840 1845 / 1845 General: Awake, Alert, Oriented x 3 HEENT: PERRL, EOMI, Sclera Non Icteric Neck: Supple, Good ROM, No Lymph Node Enlargement Lungs: Clear to auscultation Cardiovascular: Regular Rhythm, Normal S1, Normal S2, No Murmurs, No Rubs, No Gallops Vascular: No Carotid Bruits, Normal Femoral Pulses, Normal Radial Pulses, Normal Dorsalis Pedal Pulse, Normal Posterior Tibial Pulses Abdomen: Bowel Sounds Present, Soft, Non Tender, No HSM, No Organomegaly Extremities: No Cyanosis, No Clubbing, No edema Neurological: No Focal Motor or Sensory Deficit 06/12/17 03:50: Urine Color Yellow, Urine Clarity Clear, Urine pH 6.0, Ur Specific [place] 1.020, Urine Protein Negative, Urine Glucose (UA) Normal, Urine Ketones Negative, Urine Occult Blood Negative, Urine Nitrite Negative, Urine Bilirubin Negative, Urine Urobilinogen Normal, Ur Leukocyte Esterase Negative 06/12/17 05:45: WBC 5.1, RBC 4.93, Hgb 15.1, Hct 43.2, MCV 87.6, MCH 30.6, MCHC 35.0, RDW 12.4, RDW Differential 39.0, Plt Count 157, MPV 10.2, Immature Gran % (Auto) 0.200, Neut % (Auto) 45.6 L, Lymph % (Auto) 39.5, [place] % (Auto) 12.9 H, Eos % (Auto) 1.6, Baso % (Auto) 0.2, Absolute Neuts (auto) 2.3, Total Counted Not Reportable 06/12/17 05:45: PT 13.7, INR 1.1, APTT 26.1 06/12/17 05:45: Sodium 140, Potassium 3.9, Chloride 106, Carbon Dioxide 27.0, Anion Gap 7, BUN 17, Creatinine 0.86, Est GFR (MDRD) Af Amer 119, Est GFR (MDRD ) Non-Af 99, BUN/Creatinine Ratio 19.7, Glucose 88, Calcium 8.5 Rhythm: EKG: ECHO: Normal ejection fraction 65% Assessment/Plan 1. Chest pain. He underwent cardiac catheterization today which demonstrated the following: Left main coronary artery which is normal Left anterior descending artery with mild calcification and mild disease noted in the midsegment. third diagonal vessel with ostial 50-60% Circumflex artery with mid 40-50% Right coronary artery with mid 10-20% In comparison to the previous films from 2013 the above changes appear to be slightly better. He had undergone flow wire evaluation of the circumflex artery and the LAD which were noted to be not significant. In addition he has undergone within the last 4 months and exercise stress test at a high level of exercise without any angina. My recommendation would be to continue his current medical therapy and increase his isosorbide to 60 mg a day. Can be discharged later today
[2017-06-12] MEDS: 0.9% Normal Saline 1,000 ML 75 ML IV (08:15)
--- NOTE | 2017-06-12 08:16 | CL.D_ITS ---
Patient Name: KYREE THORNTON Study Date: 06/12/2017 Performing: Freddy Carvalho MD Ht: 70 inches 178 cm : 1965 Wt: 192.1 lbs 87 kg Age: 51 Gender: male BSA: 2.05 PROCEDURE(S) PERFORMED DI25-ZIN/COR/LV CLINICAL PROFILE AND INDICATIONS INDICATIONS: 51-year-old man with a history of chest pain Stress/Imaging Stress/Image Study Performed: No CAD Presentations: Symptom unlikely to be ischemic. CONCLUSIONS Mild to moderate coronary artery disease involving the mid left circumflex artery as well as the thir d diagonal vessel with mid LAD mild calcification. The above in comparison to the previous films fro m 4 years ago appeared to be no significantly different. RECOMMENDATIONS Risk factor modification ASA Indefinitely Medical therapy DESCRIPTION OF PROCEDURE The patient arrived to the procedure lab. The risks and benefits of the procedure as well as a full d escription of our services here and current unavailability of surgical backup were fully explained to the patient and/or their significant other prior to the catheterization. The Timeout was completed, verifying the correct patient and procedure. The patient's procedural site was prepped and draped in the usual fashion. Local anesthetic was given subcutaneously to right groin region with Lidocaine 2%. Using a modified Seldinger technique, arterial access was obtained via the right femoral artery, a 5 Fr sheath was inserted. Left Coronary Artery selective angiography was performed in multiple views u sing a 5 Fr. JL4 catheter. Right Coronary Artery selective angiography was then performed in multiple views using a 5 Fr. 3DRC (Yoel) catheter. Left Ventriculography was performed in LAMB projection using a 5 Fr. Pigtail catheter. LV to AO pullback pressures were then recorded.The arterial sheath wa s pulled and manual compression applied until hemostasis is achieved. CORONARY ANGIOGRAPHY DOMINANCE: Right Dominant LEFT HEART ASSESSMENT Left Ventricular Ejection Fraction: by LV Gram 65 % Normal Left Ventricular systolic function LEFT MAIN: Angiographically normal LEFT ANTERIOR DECENDING ARTERY: PROX LAD: No significant disease noted MID LAD: Mild calcification, Mild luminal irregularities less than 30% DIAGONAL 3: Ostial - 50 % Stenosis CIRCUMFLEX ARTERY: MID CIRC: 50 with mild distal dilatation % Stenosis RIGHT CORONARY ARTERY: MID RCA: Mild luminal irregularities less than 30% COMPLICATIONS No Complications PROCEDURE MEDICATIONS Fentanyl 50 mcg IV Versed 1 mg IV Oxygen: 2 L/min via nasal cannula SUMMARY OF HEMODYNAMIC DATA Time AIR REST ECG 07:20:48 AO 113/65 (84) SA 07:36:53 LV 112/1, 8 07:47:31 LV 130/4, 14 07:47:38 LV 132/-3, 23 07:48:27 LVp 124/-4, 22 07:48:32 AOp 126/69 (95) 07:48:37 Signed By Freddy Carvalho MD On 06/12/2017 08:15:41 Freddy Carvalho MD
[2017-06-12] MEDS: Multivitamins,Therapeutic Tablet 1 TABLET PO (09:59)
--- NOTE | 2017-06-12 11:01 | PCM.DC ---
- Discharge Diagnoses Current Active Problems: Current Active and Chronic Problems CAD (coronary artery disease) (Acute) Chest pain (Acute) HTN (hypertension) (Chronic) You will use the following diet at home:: Cardiac Your food should be the consistency of: Regular Your liquids should be the consistency of: Regular/Thin Discharge Activity: - - Continue activity per Cardiology recommendations. May resume sexual activity in: 10-14 days Weight Bearing Status: Weight bearing as tolerated Call your doctor if your incision/area has: Continuous Slow Oozing, Sudden Increased Bleeding, Increased Pain/ Swelling, Increased Redness, Foul Smelling Discharge, Swelling at the incision site Call your doctor if you observe: Fever of 101 or Higher, Inability to urinate, Inability to have a bowel movement, Shortness of breath, Dizziness, Fainting spells, Chest pain, Uncontrolled pain Instructions: What Is Angina?, Discharge Instructions for Angina, Discharge Instructions: Taking Nitrates, ED Chest Pain Angina Stable Allergies/Adverse Reactions: Allergies No Known Allergies Allergy (Verified 02/26/14 14:12) Medications to take at Discharge Aspirin [Aspirin, Baby] 81 mg PO DAILY@0800 02/26/14 Clopidogrel Bisulfate [Clopidogrel] 75 mg PO DAILY 02/26/14 Cholecalciferol (Vitamin D3) [Vitamin D] 2,000 unit PO DAILY 02/27/14 Atorvastatin Calcium [Lipitor] 10 mg PO QHS 06/10/17 Metoprolol Succinate 25 mg PO DAILY 06/10/17 Multivitamin [Multiple Vitamins] 1 each PO DAILY 06/10/17 Isosorbide Mononitrate [Imdur] 60 mg PO DAILY #30 tab 06/12/17 The following prescriptions were given: Isosorbide Mononitrate [Imdur] 60 mg PO DAILY #30 tab Primary Care Physician: Angus James MD [Primary Care Provider] - Please follow up with your Primary Care Physician in: Follow-up within 3-5 days to review admission. Please Follow Up With: Freddy Carvalho MD When: Please follow-up per Cardiology timeline recommendations. Proposed Discharge Date: 06/12/17
--- NOTE | 2017-06-12 11:04 | DS.PCM_ITS ---
Discharge Date and Diagnosis Date of Admission: 06/10/17 Date of Discharge: 06/12/17 - Primary Discharge Diagnosis Active and Suspected Problems CAD (coronary artery disease) (Acute) with no PCI needs Chest pain (Acute) secondary to stable angina HTN HLD - Secondary Discharge Diagnosis Chronic Problems HTN (hypertension) (Chronic) Hospital Course and Treatment Dr. Carvalho Cardiology Operations: None Procedures: Cardiac catheterization, EKG, Stress test Summary of Care Provided: The patient is a 51 y/o M w/ PMHx: CAD, HTN, HLD, History of CVA prior who presented to the [facility] ED on 06/10/17 w/ history of onset chest pain with radiation to the LUE and L jaw, described as chest pressure with some relief with NG upon ED presentation. In the ED work-up included EKG sinus rhythm without evidence of acute ischemia, CXR without acute process, unremarkable CBC and chemistry, cardiac enzyme set x 1 normal. The patient was admitted to PCU, maintained on cardiac telemetry, serial cardiac enzymes were obtained as well as serial EKGs which remained unremarkable. FLP was obtained during admission and noted to be not marked appearing. Patient underwent AM stress testing which was noted to be remarkable for possible for inducible ischemia. Cardiology consulted, patient underwent 06/12/17 cardiac catheterization following stress testing results w/ noted mild to moderate coronary artery disease involving the mid left circumflex artery as well as the third diagonal vessel with mid LAD and mild calcification which was not significantly different from prior films reviewed per cardiology 4 years prior with recommendation for risk factor modification, continued aspirin therapy indefinitely as well as continued aggressive medical therapy with increased Imdur. Patient was discharged to home in stable condition with recommendation for follow-up with primary care physician within 3-5 days as well as cardiology assessment per their discretion. DAY OF DISCHARGE PROGRESS NOTE: Subjective: Patient without acute event overnight per self and nursing report. Patient denies fever, chills, nausea, emesis, abdominal pain, recurrent or worsened chest pain or dyspnea. Patient agreeable to discharge to home.Patient will be discharged with follow-up with primary care physician within 3-5 days in addition to Cardiology per their discretion. Objective: T 97.6, heart rate 73, BP 112/67, respiratory rate 16, 95% on room air. Physical Examination: General: awake, alert, oriented x 3 and cooperative, seated upright in the bed, NAD. Skin: normal color, turgor, no icterus, cyanosis, R groin w/ dressing intact, no bleeding. HEENT: AT/NC, EOMI, PERRLA, MMM. Lungs: CTA bilaterally, moderate effort, mild decrease BL bases, no rales, ronchi or wheezing; Heart: Regular rate and rhythm; no gallop, rub audible. Abdomen: soft, NTTP, ND, normal BS. Extremities: no cyanosis, clubbing, or edema. Neurological: patient awake, alert, oriented x 3; cognitive function appears intact upon questioning,; pupils equally reactive to light and accomodation; cranial nerves II-XII grossly normal, moving all 4 extremities, strength appropriate. Psychiatric: affect appears normal, no acute evidence of depressive or anxiety feelings. Assessment and Plan: Please see hospital summary above. Discharge Diet: Low fat/ Low Cholesterol Discharge Activity: - - Continue activity per Cardiology recommendations. May resume sexual activity in: 10-14 days Weight Bearing Status: Weight bearing as tolerated Call your doctor if your incision/area has: Continuous Slow Oozing, Sudden Increased Bleeding, Increased Pain/ Swelling, Increased Redness, Foul Smelling Discharge, Swelling at the incision site Call your doctor if you observe: Fever of 101 or Higher, Inability to urinate, Inability to have a bowel movement, Shortness of breath, Dizziness, Fainting spells, Chest pain, Uncontrolled pain Home Medications: Medications to take at Discharge Aspirin [Aspirin, Baby] 81 mg PO DAILY@0800 02/26/14 Clopidogrel Bisulfate [Clopidogrel] 75 mg PO DAILY 02/26/14 Cholecalciferol (Vitamin D3) [Vitamin D] 2,000 unit PO DAILY 02/27/14 Atorvastatin Calcium [Lipitor] 10 mg PO QHS 06/10/17 Metoprolol Succinate 25 mg PO DAILY 06/10/17 Multivitamin [Multiple Vitamins] 1 each PO DAILY 06/10/17 Isosorbide Mononitrate [Imdur] 60 mg PO DAILY #30 tab 06/12/17 Following Prescrptions Were Given to Patient: Isosorbide Mononitrate [Imdur] 60 mg PO DAILY #30 tab Primary Care Physician: Angus James MD [Primary Care Provider] - Please follow up with your Primary Care Physician in: Follow-up within 3-5 days to review admission. Please Follow Up With: Freddy Carvalho MD When: Please follow-up per Cardiology timeline recommendations. Patient Instructions: What Is Angina?, Discharge Instructions for Angina, Discharge Instructions: Taking Nitrates, ED Chest Pain Angina Stable Disposition: Home Minutes spent on discharge:: 35 Patient Condition:: Fair Meaningful Use Info Meaningful Use Diagnoses (Choose all that apply): None applicable Code Visit Inpatient E&M: 37542 Disch Hosp
== END 2017-06-12 15:45 | disposition home or self-care (01) ==
LOC: ED 06-10 00:25 → PCU 06-10 01:39
PROVIDERS: Internal Medicine Cardiovascular Disease; Admitting Provider Internal Medicine; Emergency Provider Emergency Medicine; Family Provider Family Medicine; PCP Family Medicine; Visit Provider Family Medicine
DX: I25.118 Atherosclerotic heart disease of native coronary artery with other forms of angina pectoris (principal); E78.5 Hyperlipidemia, unspecified; I10 Essential (primary) hypertension; Z86.73 Personal history of transient ischemic attack (TIA), and cerebral infarction without residual deficits; Z79.02 Long term (current) use of antithrombotics/antiplatelets; Z79.899 Other long term (current) drug therapy; Z79.82 Long term (current) use of aspirin
CPT/HCPCS: 36415; 71045; 80048; 80053; 80061; 81002; 83735; 84443; 84484; 85025; 85610; 85730; 87086; 93005; 93306; 93458; 96361; 96374; 96375; 99152; 99153; 99218; 99285; J7030; A4216; C1769; G0378; J2405; Q9967

== ENCOUNTER → 2021-02-04 08:04 | Outpatient (CLI) | payer OTHER, SELFPAY ==
[2021-02-04 10:49] LABS: ALB/GLOB Ratio 1.1 RATIO (0.9-2.4); AST(SGOT) 28 U/L (15-37); Alanine Aminotransfer ALT/SGPT 44 U/L (16-61); Albumin, Serum 4.1 g/dL (3.2-5.0); Alkaline Phosphatase 62 U/L (45-117); Anion Gap 4 (5-15); BUN 14 mg/dL (7-18); Calcium,Total 9.3 mg/dL (8.5-10.1); Chloride 106 mmol/L (98-107); Creatinine, Serum 0.82 mg/dL (0.70-1.30); EST Glomerular Filtration Rate 102 mL/min (>60); Est Glom Filt Rate - Afr Amer 124 mL/min (>60); Globulin 3.6 g/dL (2.2-4.2); Glucose 85 mg/dL (74-106); Protein, Total 7.7 g/dL (6.4-8.2); Sodium Level 138 mmol/L (136-145)
[2021-02-04 18:46] LABS: AST(SGOT) 30 U/L (15-37); Alanine Aminotransfer ALT/SGPT 42 U/L (16-61); Albumin, Serum 4.1 g/dL (3.2-5.0); Alkaline Phosphatase 64 U/L (45-117); Bilirubin, Direct 0.15 mg/dL (0.00-0.30); Cholesterol 216 mg/dL (200); Globulin 3.7 g/dL (2.2-4.2); High Density Lipoprotein 54 mg/dL; Protein, Total 7.8 g/dL (6.4-8.2); Thyroid Stim Hormone (TSH) 1.79 uIU/mL (0.358-3.74); Triglycerides 69 mg/dL; Very Low Density Lipoprotein 14 mg/dL (5-40)
== END ==
PROVIDERS: PCP Family Medicine; Visit Provider Internal Medicine Cardiovascular Disease
DX: I10 Essential (primary) hypertension (principal); R07.9 Chest pain, unspecified; I25.10 Atherosclerotic heart disease of native coronary artery without angina pectoris
CPT/HCPCS: 36415; 80053; 80061; 80076; 84443

== ENCOUNTER → 2021-02-22 06:11 | Outpatient (CLI) | payer OTHER, SELFPAY ==
--- NOTE | 2021-02-22 06:14 | CDU_ITS ---
Reason For Study: TIA Rt. Velocities/BP Lt. Velocities/BP Prox CCA 99.5/30.4 cm/sec. Prox CCA 100.8/30.4 cm/sec. Mid CCA 86.5/21.3 cm/sec. Mid CCA 99.5/33.0 cm/sec. Dist CCA 87.8/23.9 cm/sec. Dist CCA 100.8/34.3 cm/sec. Prox ICA 81.2/20.0 cm/sec. Prox ICA 73.4/25.2 cm/sec. Mid ICA 73.4/25.2 cm/sec. Mid ICA 89.0/33.0 cm/sec. Dist ICA 77.3/27.8 cm/sec. Dist ICA 85.1/34.3 cm/sec. Rt. ICA/CCA = .9. Lt. ICA/CCA = .9. Prox ECA 115.2/21.3 cm/sec. Prox ECA 111.2/19.9 cm/sec. Rt. Vert. 49.9/17.3 cm/sec. Lt. Vert. 36.2/6.9 cm/sec. Right Extracranial There is intimal thickening but no significant atherosclerotic plaque noted in the right common carotid artery. There is heterogeneous, irregular atherosclerotic plaque noted in the right internal carotid artery. There is homogeneous, smooth atherosclerotic plaque noted in the right external carotid artery. Antegrade flow is noted in the right vertebral artery. There is heterogeneous, irregular atherosclerotic plaque noted in the right bulb. Left Extracranial There is homogeneous, smooth atherosclerotic plaque noted in the left common carotid artery. There is heterogeneous, irregular atherosclerotic plaque noted in the left internal carotid artery. There is homogeneous, smooth atherosclerotic plaque noted in the left external carotid artery. Antegrade flow is noted in the left vertebral artery. There is heterogeneous, irregular atherosclerotic plaque noted in the left bulb. Procedure Carotid Duplex 20855. This is a Carotid Duplex examination using B-mode, color flow and specral Doppler. The exam was diagnostic. Exam performed in department. VL/Carotid Duplex Ultrasound Interpretation Summary Mild heterogenous plaque of the proximal right internal carotid artery with les s than 50% stenosis Less than 50% stenosis right external carotid artery Mild heterogenous plaque in the proximal left internal carotid artery with less than 50% stenosis Less than 50% stenosis left external carotid artery Patent antegrade vertebral arteries bilaterally Ordering Physician: Freddy Carvalho Performed By: Lawrence Vidal RVT
--- NOTE | 2021-02-22 09:42 | STRESSREP ---
Stress Test Report Exercise stress test. 55-year-old man with a history of coronary artery disease. Medications aspirin, atorvastatin, losartan. Stress protocol: Resting EKG demonstrates normal sinus rhythm with a rate of 61 bpm normal intervals are noted resting blood pressure is 118/72 mmHg. The patient exercised according to the regular Nate protocol for a total duration of 11 minutes. The maximum heart rate attained was 164 bpm which was 100% of max infected heart rate the maximum workload was 13.4 metabolic equivalents. At rest there were no ST or EKG changes noted to suggest ischemia. At peak exercise there was upsloping ST depression noted in leads II, III and aVF of approximately 1 mm. During recovery there was less than [address] depression noted which did not meet the criteria for ischemia. No clinical angina was noted the test was terminated due to the target heart rate being achieved. The peak blood pressure was 160/72 mmHg. Rate-pressure product was 17,080. Myocardial perfusion protocol. 14.3 mCi of technetium 99m sestamibi was injected at rest. The patient exercised according to regular Nate protocol for 11 minutes and at peak exercise 44.4 mCi of technetium 99m sestamibi was injected stress images were obtained stress and rest images were reconstructed and compared in the short axis vertical long and horizontal long axis. Gated images were also obtained. Perfusion SPECT analysis: Review of the stress images demonstrate normal uptake of tracer noted in all areas of the myocardium. The resting images similarly demonstrate normal uptake of tracer noted in all areas of the myocardium. No areas of reversibility are noted to suggest ischemia and no previous infarct is noted. Gated SPECT analysis: The gated ejection fraction is noted to be 68%. Conclusion: Exercise myocardial perfusion stress test with no evidence of ischemia at a high workload. Preserved ejection fraction. Excellent functional aerobic capacity.
== END ==
PROVIDERS: PCP Family Medicine; Referring Provider Internal Medicine Cardiovascular Disease; Visit Provider Internal Medicine Cardiovascular Disease
DX: I25.10 Atherosclerotic heart disease of native coronary artery without angina pectoris (principal); Z86.73 Personal history of transient ischemic attack (TIA), and cerebral infarction without residual deficits
CPT/HCPCS: 78452; 93017; 93880; A9500; A4216

== ENCOUNTER → 2021-03-02 15:15 | Outpatient (CLI) | payer OTHER, SELFPAY ==
--- NOTE | 2021-03-02 15:17 | RAD_ITS ---
STUDY: X-RAY - RIGHT KNEE REASON FOR EXAM: Male, 55 years old. Ongoing chronic pain TECHNIQUE: 4 radiographic view(s) of the right knee. COMPARISON: None. FINDINGS: Normal visualized distal femur. Normal visualized proximal tibia and fibula. Normal proximal tibiofibular articulation. Fabella. Normal medial femorotibial compartment. Normal lateral femorotibial compartment. Normal patellofemoral articulation. No definite effusion. The soft tissue structures are unremarkable. RAD/Knee 4 or More Views IMPRESSION: No abnormal finding. Electronically Signed: Cipriano Rouse MD at 5:49 EDT Tel , Service support ,
[2021-03-02 18:08] LABS: Absolute Lymphocyte Count 2.04 X10^3/uL (0.83-4.51); Absolute Neutrophil Count 4.9 X10^3/uL (2.0-7.7); Basophil# 0.06 X10^3/uL; Basophil% 0.8 % (0-1); Eosinophil# 0.16 X10^3/uL; Hematocrit 46.5 % (40-54); Hemoglobin 15.3 g/dL (13.0-16.5); Lymphocyte # 2.04 X10^3/ul (0.83-4.51); Lymphocyte % 25.7 % (19-41); Mean Corp Hgb Conc 32.9 g/dL (32-36); Mean Corpuscular Hgb 29.5 pg (27.0-32.0); Mean Corpuscular Volume 89.8 fL (80-94); Mean Platelet Vol. 10.6 fl (6.2-12.0); Monocyte% 10.1 % (0-10); NRBC Flagged by Analyzer 0 % (0-5); Neutrophil # 4.87 X10^3/uL (2.7-7.7); Neutrophil % 61.1 % (47-70); Platelet Count 197 K/mm3 (150-450); RBC Distribution Width CV 12.3 % (11.6-14.6); Red Blood Count 5.18 M/mm3 (4.6-6.2)
[2021-03-02 18:43] LABS: CRP < 2.90 mg/L (0.0-3.0); PSA,Total - Annual Screen 1.47 ng/mL (0.00-4.00)
[2021-03-04 15:21] LABS: ANTINUCLEAR ANTIBODIES DIRECT Negative (Negative)
== END ==
PROVIDERS: PCP Family Medicine; Referring Provider Family Medicine; Visit Provider Family Medicine
DX: Z00.00 Encounter for general adult medical examination without abnormal findings (principal); M25.561 Pain in right knee; M25.50 Pain in unspecified joint; Z20.828 Contact with and (suspected) exposure to other viral communicable diseases
CPT/HCPCS: 36415; 73564; 84153; 85025; 86038; 86140; G0103

== ENCOUNTER 2021-07-26 10:45 | Outpatient (CLI) | payer OTHER, SELFPAY ==
--- NOTE | 2021-07-26 11:00 | EKG12_ITS ---
Test Reason : PRE OP Blood Pressure : / mmHG Vent. Rate : 063 BPM Atrial Rate : 063 BPM P-R Int : 148 ms QRS Dur : 094 ms QT Int : 382 ms P-R-T Axes : 060 054 053 degrees QTc Int : 390 ms Normal sinus rhythm Normal ECG Confirmed by YOLY WILLIAM, ELAINA ([id number]), editor in chief newspaper CORY PRINGLE ([id number]) on 07/27/2021 9:22:43 AM Referred By: JO ANN Confirmed By:ELAINA FREDERICK MD
[2021-07-26 12:35] LABS: Hematocrit 48.4 % (40-54); Hemoglobin 16.5 g/dL (13.0-16.5); Mean Corp Hgb Conc 34.1 g/dL (32-36); Mean Corpuscular Hgb 30.4 pg (27.0-32.0); Mean Corpuscular Volume 89.3 fL (80-94); Mean Platelet Vol. 10.1 fl (6.2-12.0); Platelet Count 208 K/mm3 (150-450); RBC Distribution Width CV 12.8 % (11.6-14.6); Red Blood Count 5.42 M/mm3 (4.6-6.2); White Blood Count 5.9 K/mm3 (4.4-11.0)
[2021-07-26 13:18] LABS: Anion Gap 4 (5-15); BUN 14 mg/dL (7-18); BUN/Creat Ratio 16.6 RATIO (10-20); Calcium,Total 9.1 mg/dL (8.5-10.1); Chloride 105 mmol/L (98-107); Creatinine, Serum 0.84 mg/dL (0.70-1.30); EST Glomerular Filtration Rate 99 mL/min (>60); Est Glom Filt Rate - Afr Amer 120 mL/min (>60); Glucose 90 mg/dL (74-106); Potassium 4.1 mmol/L (3.5-5.1); Sodium Level 138 mmol/L (136-145)
== END 2021-07-26 23:59 | disposition home or self-care (01) ==
LOC: PSN 10:46
PROVIDERS: Internal Medicine Cardiovascular Disease; PCP Family Medicine; Visit Provider Specialist
DX: Z01.818 Encounter for other preprocedural examination (principal)
CPT/HCPCS: 36415; 80048; 85027; 87426; 93005; C9803

== ENCOUNTER 2021-08-17 08:00 | Outpatient (RCR) | payer OTHER, SELFPAY ==
--- NOTE | 2021-08-03 12:03 | HP.PTEVAL ---
Patient's Visit Information KYREE THORNTON is a 55 year old M referred to Physical Therapy by Dr. Hernandez Garcia MD with a diagnosis of R meniscectomy. Date of Evaluation: 08/03/21 Physical Therapist: Moisés Wild DPT - Visit Plan Frequency: 2x /Week Duration: 4 Weeks Plan: Start with ROM progression of knee extension and flexion, progressing as tolerated. - Subjective Pt. is here today for his initial evaluation of diagnosis of medial meniscus debridement. DOS: 07/30/21. Pt. arrives with 1 crutch, partial use. 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 Pt. denies N/T. He has been icing as indicated, talking ibuprofen as prescribed. He has not done much exercises yet. He reports being very active including biking, hiking, fishing. He is sleeping well. He is hopeful to get back to all work and recreational activities without limitations. - Pain R knee Pain Intensity (Out of 10): 2 Pain Intensity Range: 2, 6 - Objective POSTURE: Pt. has slight L lateral wt. shift in stance. Pt. lacks TKE of R knee in stance. PALPATION: pt. has normal healing incisions, both port holes. No signs of infection. Pt. has negative homans sign in B calves. NEURO: Pt. has normal sensation and normal Achillies DTR bilaterally. ROM: L knee 0-0-138deg. R knee AROM: 0-8-98deg. PROM 0-5-102deg. Pt. has tight HS bilaterally L worse than R. MMT: Pt. has good quad set, SLR x10 with mild quad lag (mostly limited due to ROM loss rather than strength). GAIT: Pt. ambulates with1 crutch. He lacks TKE on R side during stance phase and has decreased L step length. He tolerates walking without 1 crutch, but is more antalgic. - Balance/Special Test Scores Lower Extremity Functional Score: 21 - Goals Goal 1:: LTG: Pt. to be I with HEP for R knee ROM and strengthening. Goal Time Frame: 4-6 Weeks Goal 2:: STG: Pt. to have increased R knee ROM to 0-0-120deg without increase in symptoms. Goal Time Frame: 2-4 Weeks Goal 3:: LTG: Pt. to ambulate without AD with normal gait mechanics and no reports of pain. Goal Time Frame: 4-6 Weeks Goal 4:: LTG: Pt. to ambulate unlimited distances without increase in symptoms. Goal Time Frame: 4-6 Weeks Goal 5:: LTG: Pt. to have full strength of RLE without increase in symptoms. Goal Time Frame: 4-6 Weeks - Rehabilitation Potential Physical Therapy Diagnosis: Pt. has signs and symptoms consistent with R meniscectomy and subsequent hypomobility. weakness, difficulty with gait and increased pain. Pt. would benefit from PT to address the above limitations progressing back to all work and recreational activities. Rehabilitation Potential: Excellent - Anticipated Interventions Patient/Client Instruction: Educate patient on: Condition, Plan of Care, Risk Factors, Benefits of Fitness Program For the Purpose of:: To improve decision making, To facilitate caregiver knowledge, To improve self management, To prevent re-injury, To improve ability to perform tasks related to life management, To improve tolerance to ADL's Therapeutic Exercise to Include: Strength training, Power training, Balance training, Coordination, Body mechanics, Postural training, Flexibilty training, Gait and locomotor training, Neuromotor development, Passive ROM, Active ROM For the Purpose of:: To decrease pain, To decrease swelling/inflammation, To increase ROM, To improve nutrient delivery to tissue, To increase oxygenation perfusion, To improve muscle performance and motor function, To improve health of tissue, To decrease soft tissue restriction, To increase flexibility/ROM Manual Therapy Techniques to Include: Mobilization, Soft tissue mobilization For the Purpose of:: To decrease pain, To decrease swelling/inflammation, To increase ROM, To improve nutrient delivery to tissue Thank you for the opportunity to evaluate your patient. For Medicare and Medicare HMO plans, please review the plan of care and approve it. It will need to be FAXED BACK to us at [phone] for Medicare purposes. For Medicare only, by signing this I certify the plan of care. Please let me know if there are questions or concerns regarding this plan of care. Physician Signature: Date:
== END 2021-08-17 19:00 | disposition home or self-care (01) ==
LOC: PT 08:00
PROVIDERS: PCP Family Medicine; Referring Provider Specialist; Visit Provider Specialist
DX: S83.241A Other tear of medial meniscus, current injury, right knee, initial encounter (principal)
CPT/HCPCS: 97110; 97161

== ENCOUNTER → 2022-02-08 | Outpatient (CLI) | payer OTHER, SELFPAY ==
[2022-02-08 11:28] LABS: ALB/GLOB Ratio 1.2 RATIO (0.9-2.4); AST(SGOT) 37 U/L (15-37); Alanine Aminotransfer ALT/SGPT 64 U/L (16-61); Alkaline Phosphatase 66 U/L (45-117); Anion Gap 4 (5-15); BUN 14 mg/dL (7-18); BUN/Creat Ratio 16.4 RATIO (10-20); Calcium,Total 9.3 mg/dL (8.5-10.1); Chloride 106 mmol/L (98-107); Cholesterol 181 mg/dL (200); Creatinine, Serum 0.86 mg/dL (0.70-1.30); EST Glomerular Filtration Rate 98 mL/min (>60); Est Glom Filt Rate - Afr Amer 118 mL/min (>60); Globulin 3.4 g/dL (2.2-4.2); Glucose 91 mg/dL (74-106); High Density Lipoprotein 59 mg/dL; Potassium 4.1 mmol/L (3.5-5.1); Protein, Total 7.4 g/dL (6.4-8.2); Sodium Level 141 mmol/L (136-145); Triglycerides 88 mg/dL; Very Low Density Lipoprotein 18 mg/dL (5-40)
== END | disposition home or self-care (01) ==
LOC: LAB 09:12
PROVIDERS: PCP Family Medicine; Referring Provider Internal Medicine Cardiovascular Disease; Visit Provider Internal Medicine Cardiovascular Disease
DX: I25.10 Atherosclerotic heart disease of native coronary artery without angina pectoris (principal); Z86.73 Personal history of transient ischemic attack (TIA), and cerebral infarction without residual deficits
CPT/HCPCS: 36415; 80053; 80061

== ENCOUNTER → 2023-02-03 | Outpatient (CLI) | payer OTHER, SELFPAY ==
[2023-02-03 15:11] LABS: Absolute Lymphocyte Count 2.42 X10^3/uL (0.83-4.51); Basophil# 0.04 X10^3/uL; Basophil% 0.6 % (0-1); Eosinophil# 0.11 X10^3/uL; Eosinophils% 1.7 % (0-5); Hematocrit 50.2 % (40-54); Hemoglobin 16.3 g/dL (13.0-16.5); Lymphocyte # 2.42 X10^3/ul (0.83-4.51); Lymphocyte % 38.5 % (19-41); Mean Corp Hgb Conc 32.5 g/dL (32-36); Mean Corpuscular Hgb 29.3 pg (27.0-32.0); Mean Corpuscular Volume 90.3 fL (80-94); Mean Platelet Vol. 10.5 fl (6.2-12.0); Monocyte# 0.72 X10^3/uL; Monocyte% 11.4 % (0-10); NRBC Flagged by Analyzer 0 % (0-5); Neutrophil # 2.99 X10^3/uL (2.7-7.7); Neutrophil % 47.6 % (47-70); Platelet Count 204 K/mm3 (150-450); RBC Distribution Width CV 12.4 % (11.6-14.6); RBC Distribution Width SD 41.1 fl (35.1-43.9); Red Blood Count 5.56 M/mm3 (4.6-6.2); White Blood Count 6.3 K/mm3 (4.4-11.0)
[2023-02-03 16:28] LABS: ALB/GLOB Ratio 1.3 RATIO (0.9-2.4); AST(SGOT) 25 U/L (15-37); Alanine Aminotransfer ALT/SGPT 60 U/L (16-61); Albumin, Serum 4.2 g/dL (3.2-5.0); Alkaline Phosphatase 64 U/L (45-117); Anion Gap 3 (5-15); BUN 17 mg/dL (7-18); BUN/Creat Ratio 18.8 RATIO (10-20); Calcium,Total 9.4 mg/dL (8.5-10.1); Chloride 108 mmol/L (98-107); Cholesterol 171 mg/dL (200); EST Glomerular Filtration Rate 91 mL/min (>60); Est Glom Filt Rate - Afr Amer 110 mL/min (>60); Globulin 3.3 g/dL (2.2-4.2); Glucose 96 mg/dL (74-106); High Density Lipoprotein 56 mg/dL; PSA,Total - Annual Screen 1.56 ng/mL (0.00-4.00); Potassium 4.8 mmol/L (3.5-5.1); Protein, Total 7.5 g/dL (6.4-8.2); Sodium Level 138 mmol/L (136-145); Triglycerides 98 mg/dL; Very Low Density Lipoprotein 20 mg/dL (5-40)
== END | disposition home or self-care (01) ==
LOC: MFPLAB 12:15
PROVIDERS: PCP Family Medicine; Visit Provider Family Medicine
DX: I67.89 Other cerebrovascular disease (principal); Z12.5 Encounter for screening for malignant neoplasm of prostate
CPT/HCPCS: 36415; 80053; 80061; 84153; 85025; G0103

== ENCOUNTER → 2023-07-17 | Outpatient (CLI) | payer OTHER, SELFPAY ==
--- OUTSIDE RECORDS SUMMARY | 2023-07-17 10:57 | XMS RPT_ITS | CCD ---
Author Name Unknown Address [facility] [place] [address] Organization [facility] Care Team Providers Care School Inspector Name Role Phone Concetta PARR, Deann Faustin Unavailable Unavailable MD Deven, Freddy South Unavailable Deann Hylton RN Unavailable Unavailable NIRAJ DIAZ Attending Unavailable Angus James Primary Care Provider Medications Completed/Discontinued Medications Medication Drug Class(es) Dates Sig (Normalized) Sig (Original) aspirin 81 mg oral strip (12 sources) Nonsteroidal Anti-inflammatory Drug Start: 01-02-2013 take 1 tablet by mouth once daily ASPIRIN 81 MG TABS One tablet by mouth daily ASPIRIN [id number] Freddy Carvalho MD atorvastatin 10 mg oral tablet (4 sources) HMG-CoA Reductase Inhibitor Start: 03-12-2014 take 1 tablet by mouth once daily LIPITOR 10 MG TABS One tablet by mouth daily ATORVASTATIN CALCIUM [id number] Freddy Carvalho MD cholecalciferol 2000 unt oral tablet (11 sources) Vitamin D Start: 02-26-2014 End: 02-02-2017 take 1 tablet by mouth once daily VITAMIN D 2000 UNIT TABS One tablet by mouth daily CHOLECALCIFEROL [id number] Freddy Carvalho MD clopidogrel 75 mg oral tablet (11 sources) P2Y12 Platelet Inhibitor Start: 01-11-2012 take 1 tablet by mouth once daily PLAVIX 75 MG TABS One tablet by mouth daily CLOPIDOGREL BISULFATE [id number] Freddy Carvalho MD fish oil (8 sources) Start: 02-26-2014 take 1 tablet by mouth every other day FISH OIL CAPS One tablet by mouth every other day OMEGA-3 FATTY ACIDS CAPS [id number] Freddy Carvalho MD Problems Active Problems Problem Classification Problem Date Documented Date Episodic/Chronic Acute cerebrovascular disease (4 sources) Cerebrovascular accident; 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: [Cerebral infarction, unspecified] Onset: 02-26-2014 02-26-2014 Chronic Coronary atherosclerosis and other heart disease (8 sources) Atherosclerotic heart disease of [place] coronary artery without angina pectoris; 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: [Coronary atherosclerosis] Onset: 03-12-2014 03-12-2014 Chronic Disorders of lipid metabolism (4 sources) Hyperlipidemia; 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: [Hyperlipidemia, unspecified] Onset: 01-02-2013 01-02-2013 Chronic Past or Other Problems Problem Classification Problem Date Documented Da te Episodic/Chronic Cardiac dysrhythmias (4 sources) Palpitations; 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: [Palpitations] Onset: 09-22-2010 09-22-2010 Episodic Nonspecific chest pain (12 sources) Chest pain, unspecified; 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: [Chest discomfort] Onset: 09-22-2010 09-22-2010 Episodic Other aftercare (4 sources) Other prison (current) drug therapy; 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: [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] Onset: 07-02-2015 07-03-2015 Episodic Other lower respiratory disease (8 sources) Dyspnea on exertion; 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: [Dyspnea] Onset: 09-22-2010 02-26-2014 Episodic Other skin disorders (1 source) Sebaceous cyst of skin; 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: [Sebaceous cyst] Onset: 06-27-2007 06-27-2007 Episodic Unclassified (8 sources) Family history of ischemic heart disease; 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: [Family history of stroke] Onset: 09-22-2010 09-22-2010 Episodic Results Test Name Value Interpretation Reference Range Facil ity Vital Signs Date Time Vital Sign Value Performing Clinician Faci lity 02-02-2017 15:30-0400 BMI (Body Mass Index) 27.69 kg/m2 MD Conchita [facility] Work Phone: 02-02-2017 15:30-0400 BP Diastolic 60 mm[Hg] MD [facility] Work Phone: 02-02-2017 15:30-0400 BP Systolic 120 mm[Hg] MD Conchita Watkins [facility] Work Phone: 02-02-2017 15:30-0400 Height 177.8 cm Freddy Carvalho MD [facility] Work Phone: 02-02-2017 15:30-0400 Pulse (Heart Rate) 60 /min MD [facility] Work Phone: 02-02-2017 15:30-0400 Respiratory Rate 20 /min MD Con[facility] Work Phone: 02-02-2017 15:30-0400 Weight 87.54 kg MD Con[facility]ita [facility] Work Phone: 07-02-2015 11:05-0500 BMI (Body Mass Index) 27.55 kg/m2 [facility] Work Phone: 07-02-2015 11:05-0500 BP Diastolic 80 mm[Hg] De[facility] Work Phone: 07-02-2015 11:05-0500 BP Systolic 110 mm[Hg] Deann [facility] Work Phone: 07-02-2015 11:05-0500 BSA (Body Surface Area) 2.05 m2 Deann [facility] Work Phone: 07-02-2015 11:05-0500 Pulse (Heart Rate) 68 /min De[facility] Work Phone: 07-02-2015 11:05-0500 Respiratory Rate 20 /min Deann [facility] Work Phone: 07-02-2015 11:05-0500 Weight 87.09 kg Deann [facility] Work Phone: 01-11-2012 13:22-0400 Height 177.8 cm De[facility] Work Phone: Encounters Encounter Date Encounter Type Care Provider Facility Start: 04-05-2021 End: 04-05-2021 Subsequent hospital visit by physician [facility] (1.5t) Radiology Procedures Date Procedure Procedure Detail Performing Clinician Start: 02-02-2017 End: 02-02-2017 Electrocardiogram, complete Freddy Carvalho MD Start: 02-02-2017 End: 02-08-2017 Nuclear stress test -exercise Freddy Carvalho MD Start: 07-02-2015 End: 07-03-2015 *Hepatic Function Panel Mario Beard Start: 07-02-2015 End: 07-03-2015 Lipid panel [AGGREGATE] Mario Beard Start: 07-02-2015 End: 08-10-2015 Nuclear stress test -Lexiscan Freddy Carvalho MD Start: 03-12-2014 End: 07-02-2015 *Hepatic Function Panel Mario Beard Start: 03-12-2014 End: 03-12-2014 MASTER ELECTRICIAN Freddy Carvalho MD Start: 03-12-2014 End: 03-12-2014 Follow Up Appt 6 months Mario Beard Start: 03-12-2014 End: 07-02-2015 Lipid panel [AGGREGATE] Mario Beard Start: 02-26-2014 End: 02-26-2014 *BMP Freddy Carvalho MD Start: 02-26-2014 End: 02-26-2014 CBC W Auto Differential panel - Blood Freddy Carvalho MD Start: 02-26-2014 End: 03-03-2014 Chest x-ray Freddy Carvalho MD Start: 02-26-2014 End: 02-26-2014 Coagulation factor induced.INR assay in platelet poor plasma Freddy Carvalho MD Start: 02-26-2014 End: 03-03-2014 Electrocardiogram, complete Freddy Carvalho MD Start: 02-26-2014 End: 03-03-2014 Left Heart Cath Freddy Carvalho MD Start: 12-13-2013 End: 03-03-2014 *Hepatic Function Panel Mario Beard Start: 12-13-2013 End: 03-03-2014 Lipid panel [AGGREGATE] Mario Beard Start: 01-02-2013 End: 03-03-2014 MASTER ELECTRICIAN Freddy Carvalho MD Start: 01-02-2013 End: 03-03-2014 Follow Up Appt 1 year Freddy Carvalho MD Start: 12-20-2012 End: 01-02-2013 Lipid panel [AGGREGATE] Mario Beard Start: 01-11-2012 End: 01-11-2012 Follow Up Appt 1 year Freddy Carvalho MD Plan of Treatment Date Care Activity Detail Author Start: 01-13-2021 Influenza vaccination INFLUENZA (#1) [facility] Start: 10-25-2018 PROSTATE CANCER SCREENING DISCUSSION PROSTATE CANCER SCREENING DISCUSSION [facility] Start: 02-02-2017 End: 02-02-2017 Appointment Appointment [facility] Work Phone: Start: 02-02-2017 End: 02-02-2017 MASTER ELECTRICIAN MASTER ELECTRICIAN [facility] Work Phone: Start: 02-02-2017 End: 02-02-2017 Follow Up Appt 1 year Follow Up Appt 1 year [facility] Work Phone: Start: 02-02-2017 End: 02-08-2017 Nuclear stress test -exercise Nuclear stress test -exercise [facility] Work Phone: Start: 01-01-2016 End: 07-06-2015 *Hepatic Function Panel *Hepatic Function Panel [facility] Work Phone: Start: 01-01-2016 End: 07-06-2015 Lipid panel [AGGREGATE] *Lipid Profile CC PCP [facility] Work Phone: Start: 07-02-2015 End: 07-03-2015 *Hepatic Function Panel *Hepatic Function Panel [facility] Work Phone: Start: 07-02-2015 End: 07-02-2015 MASTER ELECTRICIAN MASTER ELECTRICIAN [facility] Work Phone: Start: 07-02-2015 End: 07-02-2015 Follow Up Appt 1 year Follow Up Appt 1 year [facility] Work Phone: Start: 07-02-2015 End: 07-03-2015 Lipid panel [AGGREGATE] *Lipid Profile CC PCP [facility] Work Phone: Start: 07-02-2015 End: 07-02-2015 Nuclear stress test -Lexiscan Nuclear stress test -Lexiscan [facility] Work Phone: Start: 03-12-2014 End: 07-02-2015 *Hepatic Function Panel *Hepatic Function Panel [facility] Work Phone: Start: 03-12-2014 End: 03-12-2014 MASTER ELECTRICIAN MASTER ELECTRICIAN [facility] Work Phone: Start: 03-12-2014 End: 03-12-2014 Follow Up Appt 6 months Follow Up Appt 6 months [facility] Work Phone: Start: 03-12-2014 End: 07-02-2015 Lipid panel [AGGREGATE] *Lipid Profile CC PCP [facility] Work Phone: Start: 02-26-2014 End: 02-26-2014 *BMP *BMP [facility] Work Phone: Start: 02-26-2014 End: 02-26-2014 CBC W Auto Differential panel - Blood *CBC without Diff [facility] Work Phone: Start: 02-26-2014 End: 03-03-2014 Chest x-ray X-Ray, Chest, PA & Lateral [facility] Work Phone: Start: 02-26-2014 End: 02-26-2014 Coagulation factor induced.INR assay in platelet poor plasma *PT/INR [facility] Work Phone: Start: 02-26-2014 End: 03-03-2014 Electrocardiogram, complete EKG (In office) [facility] Work Phone: Start: 02-26-2014 End: 02-26-2014 Left Heart Cath Left Heart Cath [facility] Work Phone: Start: 12-13-2013 End: 03-03-2014 *Hepatic Function Panel *Hepatic Function Panel [facility] Work Phone: Start: 12-13-2013 End: 03-03-2014 Lipid panel [AGGREGATE] *Lipid Profile CC PCP [facility] Work Phone: Start: 10-25-2013 SHINGRIX VACCINE (1 of 2) SHINGRIX VACCINE (1 of 2) [facility] Start: 01-02-2013 End: 03-03-2014 MASTER ELECTRICIAN MASTER ELECTRICIAN [facility] Work Phone: Start: 01-02-2013 End: 03-03-2014 Follow Up Appt 1 year Follow Up Appt 1 year [facility] Work Phone: Start: 12-20-2012 End: 01-02-2013 Lipid panel [AGGREGATE] *Lipid Profile CC PCP [facility] Work Phone: Start: 01-11-2012 End: 01-11-2012 Follow Up Appt 1 year Follow Up Appt 1 year [facility] Work Phone: Start: 10-25-2008 COLOGUARD (FIT-DNA) COLOGUARD (FIT-DNA) [facility] Start: 10-25-2008 Colonoscopy COLONOSCOPY [facility] Start: 10-25-2008 COLORECTAL CANCER SCREENING COLORECTAL CANCER SCREENING [facility] Start: 10-25-[address] COLONOGRAPHY [facility] Start: 10-25-2008 DIABETES SCREEN DIABETES SCREEN [facility] Start: 10-25-2008 FECAL OCCULT BLOOD FECAL OCCULT BLOOD [facility] Start: 10-25-2008 SIGMOIDOSCOPY SIGMOIDOSCOPY [facility] Start: 10-25-1998 LIPID SCREEN LIPID SCREEN [facility] Start: 10-25-1982 Urine microalbumin profile DTAP,TDAP,TD (1 - Tdap) [facility] Start: 10-25-1981 HEPATITIS C SCREENING HEPATITIS C SCREENING [facility] Start: 10-25-1981 HIV SCREENING HIV SCREENING [facility] Start: 1975 Adult depression screening assessment DEPRESSION SCREENING [facility] Start: 10-25-1968 COVID-19 VACCINE (1) COVID-19 VACCINE (1) [facility] Patient Education HYPERLIPIDEMIA [facility] Work Phone: Payers Date Payer Category Payer Unknown MMO MMO [employer] [id number] 2018-Present [phone] [address] [place] [address] PPO 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 alcohol (finding) [facility] Start: 1965 Sex Assigned At Not on file [facility] Exposure to SARS-CoV -2 (event) Not sure [facility] Progress note 04-05-2021 Note Date & Type Note Facility 04-05-2021 Note HNO ID: [id number] Author: RT Mark(R) Service: Radiology Author Type: Technologist Type: Progress Notes Filed: 04/05/2021 6:32 PM Note Text: Radiology Service Progress Note PATIENT NAME: Chris Goodson DATE OF SERVICE: April 05, 2021 TIME: 6:31 PM PATIENT IDENTITY VERIFICATION COMPLETED USING TWO (2) IDENTIFIERS: Name and Date of confirmed by patient verbally and Name and Date of confirmed by identification band. FALL SCREENING: Has the patient had 2 falls in the last year or 1 fall with injury or currently using an Ambulatory Assistive Device (Walker, Cane, Wheelchair, Crutches, etc.)? No PATIENT GENDER DATA: Male PATIENT RELEVANT IMPLANT DATA REVIEWED: Yes RADIOLOGY DEPARTMENT: MR; Exam(s) Completed: Lower MSK: Knee, right PERIPHERAL IV DATA: Not applicable SIGNED BY: RT Mark(R) April 05, 2021 6:31 PM [facility] History of Present illness Narrative 04-05-2021 RT Mark(R) - 04/05/2021 6:40 PM EST Note Date & Type Note Facility 04-05-2021 History of Presen t illness Narrative Radiology Service Progress Note PATIENT NAME: Chris Goodson DATE OF SERVICE: April 05, 2021 TIME: 6:31 PM PATIENT IDENTITY VERIFICATION COMPLETED USING TWO (2) IDENTIFIERS: Name and Date of confirmed by patient verbally and Name and Date of confirmed by identification band. FALL SCREENING: Has the patient had 2 falls in the last year or 1 fall with injury or currently using an Ambulatory Assistive Device (Walker, Cane, Wheelchair, Crutches, etc.)? No PATIENT GENDER DATA: Male PATIENT RELEVANT IMPLANT DATA REVIEWED: Yes RADIOLOGY DEPARTMENT: MR; Exam(s) Completed: Lower MSK: Knee, right PERIPHERAL IV DATA: Not applicable SIGNED BY: RT Mark(R) April 05, 2021 6:31 PM documented in this encounter [facility] Reason for visit Narrative Diagnostic Procedure Only (Routine) - Closed Note Date & Type Note Facility Referral ID Status Reason Start Date Expiration Date Visits Re quested Visits Authorized [id number] Closed 03/10/2021 04/24/2021 1 1 [facility] Summary Purpose Family History No Family History Records FoundNo Family History Records FoundNo Family History Records Found Advance Directives No Advanced Directives Records FoundDocuments on File Type Date 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 Advance Directive(s) 03/15/2021 1:06 PM Additional Source Comments (unrecognized sect ion and content) No Status Records FoundNo Status Records FoundNo Status Records Found INFORMATION SOURCE (unrecogn ized section and content) DATE CREATED AUTHOR AUTHOR'S ORGANIZ ATION 12/08/2019 [facility] [place] DATE CREATED AUTHOR AUTHOR'S ORGANIZ ATION 04/06/2021 [facility] Source Comments (unrecognize d section and content) In the event this informatio n is protected by the Federal Confidentiality of Alcohol and Drug Abuse Patient Records regulations: The Federal rules restrict any use of the information to criminally investigate or prosecute any alcohol or drug abuse patient.[facility] Care Teams (unrecognized sec tion and content) FOR RECORDS PERTAINING TO PATIENTS WHO ARE OR HAVE BEEN ENROLLED IN A CHEMICAL DEPENDENCY/SUBSTANCEABUSE PROGRAM, SOME INFORMATION MAY BE OMITTED. This clinical summary was aggregated from multiple sources. Caution should be exercised in using it in the provision of clinical care. This summary normalizes information from multiple sources, and as a consequence, information in this document may materially change the coding, format and clinical context of patient data. In addition, data may be omitted in some cases. CLINICAL DECISIONS SHOULD BE BASED ON THE PRIMARY CLINICAL RECORDS. [facility]. provides no warranty or guarantee of the accuracy or completeness of information in this document.
[2023-07-17 13:04] LABS: ALB/GLOB Ratio 1.3 RATIO (0.9-2.4); AST(SGOT) 34 U/L (15-37); Alanine Aminotransfer ALT/SGPT 50 U/L (16-61); Albumin, Serum 4.3 g/dL (3.2-5.0); Alkaline Phosphatase 72 U/L (45-117); Anion Gap 2 (5-15); BUN 17 mg/dL (7-18); BUN/Creat Ratio 19.8 RATIO (10-20); Calcium,Total 9.8 mg/dL (8.5-10.1); Chloride 109 mmol/L (98-107); Creatinine, Serum 0.86 mg/dL (0.70-1.30); EST Glomerular Filtration Rate 97 mL/min (>60); Est Glom Filt Rate - Afr Amer 117 mL/min (>60); Globulin 3.3 g/dL (2.2-4.2); Glucose 94 mg/dL (74-106); Lipase 79 U/L (13-75); Potassium 4.6 mmol/L (3.5-5.1); Protein, Total 7.6 g/dL (6.4-8.2); Sodium Level 139 mmol/L (136-145)
[2023-07-18 16:09] LABS: Deamidated Gliadin IgA 2 units (0-19); Deamidated Gliadin IgG 3 units (0-19); Endomysial Antibody IgA Negative (Negative); Immunoglobulin A 95 mg/dL (90-386); t-Transglutaminase IgA <2 U/mL (0-3)
== END | disposition home or self-care (01) ==
LOC: MFPLAB 10:38
PROVIDERS: PCP Family Medicine; Visit Provider Family Medicine
DX: R19.7 Diarrhea, unspecified (principal)
CPT/HCPCS: 36415; 80053; 82784; 83516; 83690; 86255

== ENCOUNTER → 2023-07-19 | Outpatient (CLI) | payer OTHER, SELFPAY ==
--- OUTSIDE RECORDS SUMMARY | 2023-07-19 09:02 | XMS RPT_ITS | CCD ---
Author Name Unknown Address [facility] [place] [address] Organization [facility] Care Team Providers Care Telegraphic Service Dispatcher Name Role Phone Concetta PARR, Deann Faustin [...] TABS One tablet by mouth daily ASPIRIN [id number] Freddy Carvalho MD atorvastatin 10 mg oral tablet (4 sources) HMG-CoA Reductase Inhibitor Start: 03-12-2014 take 1 tablet by mouth once daily LIPITOR 10 MG TABS One tablet by mouth daily ATORVASTATIN CALCIUM [id number] Freddy Carvalho MD cholecalciferol 2000 unt oral tablet (11 sources) Vitamin D Start: 02-26-2014 End: 02-02-2017 take 1 tablet by mouth once daily VITAMIN D 2000 UNIT TABS One tablet by mouth daily CHOLECALCIFEROL [id number] Freddy Carvalho MD clopidogrel 75 mg oral tablet (11 sources) P2Y12 Platelet Inhibitor Start: 01-11-2012 take 1 tablet by mouth once daily PLAVIX 75 MG TABS One tablet by mouth daily CLOPIDOGREL BISULFATE [id number] Freddy Carvalho MD fish oil (8 sources) Start: 02-26-2014 take 1 tablet by mouth every other day FISH OIL CAPS One tablet by mouth every other day OMEGA-3 FATTY ACIDS CAPS [id number] Freddy Carvalho MD Problems Active Problems Problem Classification Problem Date Documented Date Episodic/Chronic Acute cerebrovascular disease (4 sources) Cerebrovascular accident; 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: [Cerebral infarction, unspecified] Onset: 02-26-2014 02-26-2014 Chronic Coronary atherosclerosis and other heart disease (8 sources) Atherosclerotic heart disease of [place] coronary artery without angina pectoris; 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: [Coronary [...] 09-22-2010 Episodic Other aftercare (4 sources) Other jail (current) drug therapy; 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: [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] Onset: 07-02-2015 07-03-2015 Episodic [...] Mass Index) 27.69 kg/m2 MD [facility] Work Phone: 02-02-2017 15:30-0400 BP Diastolic 60 mm[Hg] MD [facility] Work Phone: 02-02-2017 15:30-0400 BP Systolic 120 mm[Hg] MD [facility] Work Phone: 02-02-2017 15:30-0400 Height 177.8 cm Freddy Carvalho MD [facility] Work Phone: 02-02-2017 15:30-0400 Pulse (Heart Rate) 60 /min MD [facility] Work Phone: 02-02-2017 15:30-0400 Respiratory Rate 20 /min MD [facility] Work Phone: 02-02-2017 15:30-0400 Weight 87.54 kg MD [facility] Work Phone: 07-02-2015 11:05-0500 BMI [...] End: 04-05-2021 Subsequent hospital visit by physician [facility] (1.5t) Radiology Procedures Date Procedure Procedure Detail [...] Panel Mario Beard Start: 03-12-2014 End: 03-12-2014 CITY CLERK Freddy Carvalho MD Start: 03-12-2014 End: 03-12-2014 [...] [AGGREGATE] Mario Beard Start: 01-02-2013 End: 03-03-2014 CITY CLERK Freddy Carvalho MD Start: 01-02-2013 End: 03-03-2014 Follow Up Appt 1 year Freddy Carvalho MD Start: 12-20-2012 End: 01-02-2013 Lipid panel [AGGREGATE] Mario Beard Start: 01-11-2012 End: 01-11-2012 Follow Up Appt 1 year Freddy Carvalho MD Plan of Treatment Date Care Activity Detail Author Start: 01-13-2021 Influenza vaccination INFLUENZA (#1) [facility] Start: 10-25-2018 PROSTATE CANCER SCREENING DISCUSSION PROSTATE CANCER SCREENING DISCUSSION [facility] Start: 02-02-2017 End: 02-02-2017 Appointment Appointment [facility] Work Phone: Start: 02-02-2017 End: 02-02-2017 CITY CLERK CITY CLERK [facility] Work Phone: Start: 02-02-2017 [...] Lipid panel [AGGREGATE] *Lipid Profile CC PCP [facility] Work Phone: Start: 07-02-2015 End: 07-03-2015 *Hepatic Function Panel *Hepatic Function Panel [facility] Work Phone: Start: 07-02-2015 End: 07-02-2015 CITY CLERK CITY CLERK [facility] Work Phone: Start: 07-02-2015 End: 07-02-2015 Follow Up Appt 1 year Follow Up Appt 1 year [facility] Work Phone: Start: 07-02-2015 End: 07-03-2015 Lipid panel [AGGREGATE] *Lipid Profile CC PCP [facility] Work Phone: Start: 07-02-2015 End: 07-02-2015 Nuclear stress test -Lexiscan Nuclear stress test -Lexiscan [facility] Work Phone: Start: 03-12-2014 End: 07-02-2015 *Hepatic Function Panel *Hepatic Function Panel [facility] Work Phone: Start: 03-12-2014 End: 03-12-2014 CITY CLERK CITY CLERK [facility] Work Phone: Start: 03-12-2014 End: 03-12-2014 Follow Up Appt 6 months Follow Up Appt 6 months [facility] Work Phone: Start: 03-12-2014 End: 07-02-2015 Lipid panel [AGGREGATE] *Lipid Profile CC PCP [facility] Work Phone: Start: 02-26-2014 End: 02-26-2014 *BMP *BMP [facility] Work Phone: Start: 02-26-2014 End: 02-26-2014 CBC W Auto Differential panel - Blood *CBC without Diff [facility] Work Phone: Start: 02-26-2014 End: 03-03-2014 Chest x-ray X-Ray, Chest, PA & Lateral [facility] Work Phone: Start: 02-26-2014 End: 02-26-2014 Coagulation factor induced.INR assay in platelet poor plasma *PT/INR [facility] Work Phone: Start: 02-26-2014 End: 03-03-2014 Electrocardiogram, complete EKG (In office) [facility] Work Phone: Start: 02-26-2014 End: 02-26-2014 Left Heart Cath Left Heart Cath [facility] [facility] Work Phone: Start: 12-13-2013 End: 03-03-2014 *Hepatic Function Panel *Hepatic Function Panel [facility] [employer] [facility] Work Phone: Start: 12-13-2013 End: 03-03-2014 Lipid panel [AGGREGATE] *Lipid Profile CC PCP [facility] Work Phone: Start: 10-25-2013 SHINGRIX VACCINE (1 of 2) SHINGRIX VACCINE (1 of 2) [facility] Start: 01-02-2013 End: 03-03-2014 CITY CLERK CITY CLERK [facility] Work Phone: Start: 01-02-2013 End: 03-03-2014 Follow Up Appt 1 year Follow Up Appt 1 year [facility] Work Phone: Start: 12-20-2012 End: 01-02-2013 Lipid panel [AGGREGATE] *Lipid Profile CC PCP [facility] Work Phone: Start: 01-11-2012 End: 01-11-2012 Follow Up Appt 1 year Follow Up Appt 1 year [facility] Work Phone: Start: 10-25-2008 COLOGUARD (FIT-DNA) COLOGUARD (FIT-DNA) [facility] Start: 10-25-2008 Colonoscopy COLONOSCOPY [facility] Start: 10-25-2008 COLORECTAL CANCER SCREENING COLORECTAL CANCER SCREENING [facility] Start: 10-25-[address] COLONOGRAPHY [facility] Start: 10-25-2008 DIABETES SCREEN DIABETES SCREEN [facility] Start: 10-25-2008 FECAL OCCULT BLOOD FECAL OCCULT BLOOD [facility] Start: 10-25-2008 SIGMOIDOSCOPY SIGMOIDOSCOPY [facility] Start: 10-25-1998 LIPID SCREEN LIPID SCREEN [facility] Start: 10-25-1982 Urine microalbumin profile DTAP,TDAP,TD (1 - Tdap) [facility] Start: 10-25-1981 HEPATITIS C SCREENING HEPATITIS C SCREENING [facility] Start: 10-25-1981 HIV SCREENING HIV SCREENING [facility] Start: 1975 Adult depression screening assessment DEPRESSION SCREENING [facility] Start: 10-25-1968 COVID-19 VACCINE (1) COVID-19 VACCINE (1) [facility] Patient Education HYPERLIPIDEMIA [facility] Work Phone: Payers Date Payer Category Payer Unknown MMO MMO [employer] [id number] 2018-Present [phone] [address] [place] [address] PPO 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) [facility] Start: 1965 Sex Assigned At Not on file [facility] Exposure to SARS-CoV -2 (event) Not sure [facility] Progress note 04-05-2021 Note Date & Type Note Facility 04-05-2021 Note HNO ID: [id number] Author: RT Mark(R) Service: Radiology Author Type: [...] IV DATA: Not applicable SIGNED BY: RT Makr(R) April 05, 2021 6:31 PM [facility] History of Present illness Narrative 04-05-2021 RT [...] 2021 6:31 PM documented in this encounter [facility] Reason for visit Narrative Diagnostic Procedure Only (Routine) - Closed Note Date & Type Note Facility Referral ID Status Reason Start Date Expiration Date Visits Re quested Visits Authorized [id number] Closed 03/10/2021 04/24/2021 1 1 [facility] Summary Purpose Family History No Family History Records FoundNo Family History Records FoundNo Family History Records Found Advance Directives No Advanced Directives Records FoundDocuments on File Type Date Recorded 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 Advance Directive(s) 03/15/2021 1:06 PM Additional Source Comments (unrecognized sect ion and content) No Status Records FoundNo Status Records FoundNo Status Records Found INFORMATION SOURCE (unrecogn ized section and content) DATE CREATED AUTHOR AUTHOR'S ORGANIZ ATION 12/08/2019 [facility] DATE CREATED AUTHOR AUTHOR'S ORGANIZ ATION 04/06/2021 [facility] Source Comments (unrecognize d section and content) In the event this informatio n is protected by the Federal Confidentiality of Alcohol and Drug Abuse Patient Records regulations: The Federal rules restrict any use of the information to criminally investigate or prosecute any alcohol or drug abuse patient.[facility] Care Teams (unrecognized sec tion and [...] BE BASED ON THE PRIMARY CLINICAL RECORDS. [facility] provides no warranty or guarantee of the accuracy or completeness of information in this document.
[2023-07-24 04:06] LABS: H. PYLORI STOOL AG Negative (Negative); Pancreatic Elastase, Fecal 201 (>200)
[2023-07-28 22:06] LABS: Fats, Neutral Normal (.); Fats, Total Increased (.); pH, Stool 6.5 (7.0-7.5)
== END | disposition home or self-care (01) ==
LOC: LABSPEC 08:38
PROVIDERS: PCP Family Medicine; Referring Provider Family Medicine; Visit Provider Family Medicine
DX: R19.7 Diarrhea, unspecified (principal); R10.13 Epigastric pain
CPT/HCPCS: 82653; 82705; 83630; 83986; 87177; 87209; 87338; 87493; 87506